=== PATIENT | female | born 1990 | race Caucasian/White ===

== ENCOUNTER → 2018-02-10 | Outpatient (CLI) | payer OTHER ==
--- NOTE | 2018-02-10 15:10 | MR ---
EXAMINATION TYPE: MR lumbar spine wo con DATE OF EXAM: 02/10/2018 COMPARISON: None HISTORY: Low back pain CONTRAST: 0 mL intravenous Gadavist. TECHNIQUE: Multiplanar, multisequence images of the lumbar spine were acquired. FINDINGS: L5-S1: Broad-based disc bulge is present. On T2-weighted sequences there is posterior inferior increa sed signal within the disc space compatible with a large annular tear. No contact with the thecal sac is evident. No contact with the exiting nerve roots is evident. No spinal canal stenosis. No kevin inal stenosis. Disc desiccation is present at this level. L4-L5: Minimal subligamentous central disc herniation may be present. No significant thecal sac compr ession is evident. No spinal canal stenosis. No foraminal stenosis. L3-L4: No significant disc bulge or disc herniation. No spinal canal stenosis. No foraminal stenosi s. L2-L3: No significant disc bulge or disc herniation. No spinal canal stenosis. No foraminal stenosi s. L1-L2: No significant disc bulge or disc herniation. No spinal canal stenosis. No foraminal stenosi s. . T12-L1: No significant disc bulge or disc herniation. No spinal canal stenosis. No foraminal stenos is. IMPRESSION: 1. Large disc bulge with annular tear L5-S1. 2. L5-S1 disc desiccation. 3. Small central subligamentous disc herniation L4-5 questionable clinical significance. No thecal sa c compression or stenosis is evident.
== END ==
LOC: RADMRIMAIN 08:12
PROVIDERS: ATTEND Family Medicine
DX: M51.27 Other intervertebral disc displacement, lumbosacral region (principal)
CPT/HCPCS: 72148

== ENCOUNTER 2023-01-27 14:50 | Emergency (ER) | payer OTHER ==
[2023-01-27] MEDS ORDERED: ALBUTEROL NEBULIZED 2.5 MG/3 ML INHALATION STA (15:07)
[2023-01-27] MEDS ORDERED: BENZONATATE 100 MG CAP PO STA (15:07)
[2023-01-27 15:26] LABS: Basophils % (A) 0 %; Eosinophils # (A) 0.9 k/uL (0-0.7); Eosinophils % (A) 6 %; HCT 41.6 % (34.0-46.0); HGB 14.8 gm/dL (11.4-16.0); Lymphocytes # (A) 2.2 k/uL (1.0-4.8); Lymphocytes % (A) 15 %; MCH 33.6 pg (25.0-35.0); MCHC 35.7 g/dL (31.0-37.0); Mean Platelet Volume 8.5; Monocytes # (A) 0.5 k/uL (0-1.0); Monocytes % (A) 3 %; Neutrophils # (A) 11.3 k/uL (1.3-7.7); Neutrophils % (A) 75 %; Platelet Count 311 k/uL (150-450); RBC 4.42 m/uL (3.80-5.40); RDW 12.4 % (11.5-15.5); WBC 15.2 k/uL (3.8-10.6)
[2023-01-27 15:48] LABS: ALT 9 U/L (4-34); AST 17 U/L (14-36); African American GFR (CKD) >90 (>60 ml/min/1.73 sqM); Albumin 4.4 g/dL (3.5-5.0); Alkaline Phosphatase 55 U/L (38-126); Anion Gap 12 mmol/L; Blood Urea Nitrogen 4 mg/dL (7-17); Calcium 9.4 mg/dL (8.4-10.2); Carbon Dioxide 23 mmol/L (22-30); Chloride 105 mmol/L (98-107); Glucose 104 mg/dL (74-99); Non-African American GFR(CKD) >90 (>60 ml/min/1.73 sqM); Potassium 3.7 mmol/L (3.5-5.1); Sodium 140 mmol/L (137-145); Total Bilirubin 0.5 mg/dL (0.2-1.3); Total Protein 7.8 g/dL (6.3-8.2)
--- NOTE | 2023-01-27 15:50 | XR ---
EXAMINATION TYPE: XR chest 2V DATE OF EXAM: 01/27/2023 COMPARISON: NONE HISTORY: Cough TECHNIQUE: Frontal and lateral views of the chest are obtained. FINDINGS: There is no focal air space opacity, pleural effusion, or pneumothorax seen. The cardiac silhouette size is within normal limits. The osseous structures are intact. IMPRESSION: No acute cardiopulmonary process.
[2023-01-27] MEDS ORDERED: guaiFENesin SYRUP 100MG/5ML 200 MG/10 ML CUP PO PRN (15:54)
--- NOTE | 2023-01-27 16:37 | ED ---
General Adult HPI - General Chief complaint: Shortness of Breath Stated complaint: Chest pain Time Seen by Provider: 01/27/23 14:59 Source: patient, EMS, RN notes reviewed Mode of arrival: EMS Limitations: no limitations - History of Present Illness Initial comments: 32-year-old female with no significant past medical history presents to the emergency department with a chief complaint of cough. Patient reports worsening cough, headache, nasal congestion for the last 3 days. She denies recent sick contacts. She reports that it feels tight when she has to take a deep breath. Denies known fevers, chest pain, palpitations nausea or vomiting. - Related Data Previous Rx's Medication Instructions Recorded Azithromycin [Zithromax Z Pack] 1 tab PO DIRECTED #6 tab 01/27/23 Benzonatate [Tessalon Perles] 100 mg PO TID PRN #15 capsule 01/27/23 Allergies Allergy/AdvReac Type Severity Reaction Status Date / Time No Known Allergies Allergy Verified 01/27/23 16:40 Review of Systems ROS Statement: Those systems with pertinent positive or pertinent negative responses have been documented in the HPI. ROS Other: All systems not noted in ROS Statement are negative. Past Medical History Past Medical History: No Reported History Additional Past Medical History / Comment(s): frequent diarrhea, History of Any Multi-Drug Resistant Organisms: None Reported Additional Past Surgical History / Comment(s): D&C Past Anesthesia/Blood Transfusion Reactions: Motion Sickness Past Psychological History: Anxiety, Bipolar, Depression Smoking Status: Current some day smoker, Vaper Past Alcohol Use History: Occasional Past Drug Use History: None Reported - Past Family History Mother Family Medical History: No Reported History General Exam - General Exam Comments Initial Comments: General: Alert, in no acute distress Head: atraumatic normocephalic. Eyes PERRL, EOMI intact, mucous membranes moist Respiratory: Lungs clear to auscultation bilaterally, patient able to speak in complete sentences. Respiratory rate 16 when directed Cardiovascular: Heart rate regular rate and rhythm Abdominal: Soft without guarding or rebound Extremities: Normal inspection with full range of motion and normal capillary refill Neuroogic: alert and oriented 3, CN II-XII intact, able to ambulate with steady gait Skin: warm dry and intact with normal color Limitations: no limitations Course Vital Signs 01/27/23 01/27/23 01/27/23 14:52 15:12 15:25 Temperature 98.3 F Pulse Rate 116 H 96 92 Respiratory 30 H Rate Blood Pressure 131/91 O2 Sat by Pulse 98 Oximetry - Reevaluation(s) Reevaluation #1: 01/27/23 16:51 Dr. Hernandez At bedside to discuss case EKG Findings - EKG Comments: EKG Findings:: Interpreted the following: EKG performed at 14:51 rate 120 bpm with sinus tachycardia and frequent PVCs. IA interval 143, QRS duration 69, QT/QTc 339/410 Medical Decision Making - Medical Decision Making Was pt. sent in by a medical professional or institution (, [facility], [facility], urgent care, hospital, or jail...) When possible be specific @ -[No] Did you speak to anyone other than the patient for history (EMS, parent, family, police, friend...)? What history was obtained from this source @ -EMS Did you review nursing and triage notes (agree or disagree)? Why? @ -[I reviewed and agree with nursing and triage notes] Were old charts reviewed (outside hosp., previous admission, EMS record, old EKG, old radiological studies, urgent care reports/EKG's, jail records)? Report findings @ -[No old charts were reviewed] Differential Diagnosis (chest pain, altered mental status, abdominal pain women, abdominal pain men, vaginal bleeding, weakness, fever, dyspnea, syncope, headache, dizziness, GI bleed, back pain, seizure, CVA, palpatations, mental health, musculoskeletal)? @ -[not applicable] EKG interpreted by me (3pts min.). @ -[As above] X-rays interpreted by me (1pt min.). @ -Chest x-ray does not reveal any acute pleural process CT interpreted by me (1pt min.). @ -[None done] U/S interpreted by me (1pt. min.). @ -[None done] What testing was considered but not performed or refused? (CT, X-rays, U/S, labs)? Why? @ -[None] What meds were considered but not given or refused? Why? @ -[None] Did you discuss the management of the patient with other professionals (professionals i.e. , [facility], [facility], lab, RT, psych nurse, rn social services, machine captain, teacher, parole hearing officer, family service caseworker)? Give summary @ -[No] Was smoking cessation discussed for >3mins.? @ -[No] Was critical care preformed (if so, how long)? @ -[No] Were there social determinants of health that impacted care today? How? (Homelessness, low income, unemployed, alcoholism, drug addiction, transportation, low edu. Level, literacy, decrease access to med. care, retirement, rehab)? @ -[No] Was there de-escalation of care discussed even if they declined (Discuss DNR or withdrawal of care, Hospice)? DNR status @ -[No] What co-morbidities impacted this encounter? (DM, HTN, Smoking, COPD, CAD, Cancer, CVA, ARF, Chemo, Hep., AIDS, mental health diagnosis, sleep apnea, morbid obesity)? @ -[None] Was patient admitted / discharged? Hospital course, mention meds given and route, prescriptions, significant lab abnormalities, going to OR and other pertinent info. @ -Discharged. This is a 32-year-old female who presents the emergency department via EMS with a cough. Patient had a thorough history and physical exam performed. Patient is safe rate tachycardic however respiratory rate will ranging from 16-18 when directed. Patient had laboratory studies and chest x-ray which were unremarkable. Vital signs negative. Patient provided 2 DuoNeb treatment symptomatic improvement. Patient also provided Tessalon Perles, Robitussin and azithromycin. Dr. Hernandez At bedside to evaluate the patient. We discussed at length with the patient verbalizes for questions were addressed. She is agreeable with the plan for discharge home with strict return parameters. Patient was discharged in stable condition. This is discussed with Dr. Prajapati Litzy who agrees with plan of care Undiagnosed new problem with uncertain prognosis? @ -[No] Drug Therapy requiring intensive monitoring for toxicity (Heparin, Nitro, Insulin, Cardizem)? @ -[No] Were any procedures done? @ -[No] Diagnosis/symptom? @ -COugh Acute, or Chronic, or Acute on Chronic? @ -[Acute Uncomplicated (without systemic symptoms) or Complicated (systemic symptoms)? @ -Uncomplicated Side effects of treatment? @ -[No] Exacerbation, Progression, or Severe Exacerbation? @ -[No] Poses a threat to life or bodily function? How? (Chest pain, [place], [place], pneumonia, PE, COPD, DKA, ARF, appy, cholecystitis, CVA, Diverticulitis, Homicidal, Suicidal, threat to staff... and all critical care pts) @ -Low likelihood - Lab Data Result diagrams: 01/27/23 15:10 01/27/23 15:10 Lab Results 01/27/23 01/27/23 01/27/23 Range/Units 15:10 15:10 15:10 WBC 15.2 H (3.8-10.6) k/uL RBC 4.42 (3.80-5.40) m/uL Hgb 14.8 (11.4-16.0) gm/dL Hct 41.6 (34.0-46.0) % MCV 94.0 (80.0-100.0) fL MCH 33.6 (25.0-35.0) pg MCHC 35.7 (31.0-37.0) g/dL RDW 12.4 (11.5-15.5) % Plt Count 311 (150-450) k/uL MPV 8.5 Neutrophils % 75 % Lymphocytes % 15 % Monocytes % 3 % Eosinophils % 6 % Basophils % 0 % Neutrophils # 11.3 H (1.3-7.7) k/uL Lymphocytes # 2.2 (1.0-4.8) k/uL Monocytes # 0.5 (0-1.0) k/uL Eosinophils # 0.9 H (0-0.7) k/uL Basophils # 0.0 (0-0.2) k/uL D-Dimer 0.41 (<0.60) mg/L FEU Sodium 140 (137-145) mmol/L Potassium 3.7 (3.5-5.1) mmol/L Chloride 105 (98-107) mmol/L Carbon Dioxide 23 (22-30) mmol/L Anion Gap 12 mmol/L BUN 4 L (7-17) mg/dL Creatinine 0.56 (0.52-1.04) mg/dL Est GFR (CKD-EPI)AfAm >90 (>60 ml/min/1.73 sqM) Est GFR (CKD-EPI)NonAf >90 (>60 ml/min/1.73 sqM) Glucose 104 H (74-99) mg/dL Calcium 9.4 (8.4-10.2) mg/dL Total Bilirubin 0.5 (0.2-1.3) mg/dL AST 17 (14-36) U/L ALT 9 (4-34) U/L Alkaline Phosphatase 55 (38-126) U/L Total Protein 7.8 (6.3-8.2) g/dL Albumin 4.4 (3.5-5.0) g/dL Influenza Type A (PCR) (Not Detectd) Influenza Type B (PCR) (Not Detectd) RSV (PCR) (Not Detectd) SARS-CoV-2 (PCR) (Not Detectd) Group A Strep (PCR) (Not Detectd) 01/27/23 01/27/23 Range/Units 15:10 15:10 WBC (3.8-10.6) k/uL RBC (3.80-5.40) m/uL Hgb (11.4-16.0) gm/dL Hct (34.0-46.0) % MCV (80.0-100.0) fL MCH (25.0-35.0) pg MCHC (31.0-37.0) g/dL RDW (11.5-15.5) % Plt Count (150-450) k/uL MPV Neutrophils % % Lymphocytes % % Monocytes % % Eosinophils % % Basophils % % Neutrophils # (1.3-7.7) k/uL Lymphocytes # (1.0-4.8) k/uL Monocytes # (0-1.0) k/uL Eosinophils # (0-0.7) k/uL Basophils # (0-0.2) k/uL D-Dimer (<0.60) mg/L FEU Sodium (137-145) mmol/L Potassium (3.5-5.1) mmol/L Chloride (98-107) mmol/L Carbon Dioxide (22-30) mmol/L Anion Gap mmol/L BUN (7-17) mg/dL Creatinine (0.52-1.04) mg/dL Est GFR (CKD-EPI)AfAm (>60 ml/min/1.73 sqM) Est GFR (CKD-EPI)NonAf (>60 ml/min/1.73 sqM) Glucose (74-99) mg/dL Calcium (8.4-10.2) mg/dL Total Bilirubin (0.2-1.3) mg/dL AST (14-36) U/L ALT (4-34) U/L Alkaline Phosphatase (38-126) U/L Total Protein (6.3-8.2) g/dL Albumin (3.5-5.0) g/dL Influenza Type A (PCR) Not Detected (Not Detectd) Influenza Type B (PCR) Not Detected (Not Detectd) RSV (PCR) Not Detected (Not Detectd) SARS-CoV-2 (PCR) Not Detected (Not Detectd) Group A Strep (PCR) NOT DETECTED (Not Detectd) Disposition Clinical Impression: Cough Disposition: HOME SELF-CARE Condition: Stable Instructions (If sedation given, give patient instructions): Cold Symptoms (ED), Bronchospasm (ED), Acute Cough (ED) Additional Instructions: PLease monitor your symptoms closley Please take Tessalon Perles for cough Return to the nearest emergency department symptoms worsen or persist Prescriptions: Benzonatate [Tessalon Perles] 100 mg PO TID PRN #15 capsule PRN Reason: Cough Azithromycin [Zithromax Z Pack] 1 tab PO DIRECTED #6 tab Is patient prescribed a controlled substance at d/c from ED?: No Referrals: Taran Vasques MD [Primary Care Provider] - 1-2 days Time of Disposition: 16:39
[2023-01-27] MEDS ORDERED: AZITHROMYCIN 500 MG TAB PO STA (16:47)
[2023-01-27] MEDS ORDERED: IPRATROPIUM-ALBUTEROL 3 ML NEB INHALATION STA (16:52)
[2023-01-27 17:55] VITALS: BP 113/79; PULSE 104; RESP 20; TEMP 98.5
== END 2023-01-27 17:46 | disposition home or self-care (01) ==
LOC: EC 14:50
DX: R05.9 Cough, unspecified (principal); F17.290 Nicotine dependence, other tobacco product, uncomplicated; I25.2 Old myocardial infarction; Z86.59 Personal history of other mental and behavioral disorders; Z20.822 Contact with and (suspected) exposure to COVID-19
CPT/HCPCS: 36415; 71046; 80053; 85025; 85379; 87636; 87651; 94640; 99285

== ENCOUNTER 2023-01-27 20:19 | Observation (INO) | payer OTHER ==
[2023-01-27] MEDS ORDERED: ONDANSETRON 4 MG/2 ML VIAL IVP STA (20:41)
[2023-01-27] MEDS ORDERED: SODIUM CHLORIDE 0.9% 1,000 ML IV STA ×2 (20:41)
--- NOTE | 2023-01-27 21:20 | ED ---
Altered Mental Status HPI - General Chief Complaint: Nausea/Vomiting/Diarrhea Stated Complaint: recheck Time Seen by Provider: 01/27/23 20:37 Source: patient, family, RN notes reviewed, old records reviewed Mode of arrival: wheelchair Limitations: no limitations - History of Present Illness Initial Comments: This is a 32-year-old female presents to the emergency department today today. Patient is safe for evaluation regards to significantly altered mental status. Patient was in the emergency room earlier today diagnosed with bronchitis given antibiotics and having severe shortness of breath at the time. Patient's family is at bedside with patient states she's been acting appropriately complaining of severe headache, crying in pain with shortness of breath and chest pain. MD Complaint: altered mental status, confusion -: hour(s) Severity: severe Consistency of Symptoms: getting worse Context: history of similar presentation, other (Chest pain or shortness of breath) Associated Symptoms: chest pain, cough, headaches - Related Data Previous Rx's Medication Instructions Recorded Amoxic-Pot Clav 875-125Mg 1 tab PO Q12HR 7 Days #14 tab 01/30/23 [Augmentin 875-125] Benzocaine/Menthol Lozeng [Cepacol 1 each MUCOUS MEM Q4HR PRN 7 Days 01/30/23 lozenge] #42 lozenge guaiFENesin [Mucinex] 600 mg PO Q12HR 5 Days #10 tab 01/30/23 predniSONE [Deltasone] 20 mg PO DAILY 3 Days #3 tab 01/30/23 Allergies Allergy/AdvReac Type Severity Reaction Status Date / Time No Known Allergies Allergy Verified 01/27/23 21:54 Review of Systems ROS Statement: Those systems with pertinent positive or pertinent negative responses have been documented in the HPI. ROS Other: All systems not noted in ROS Statement are negative. Past Medical History Past Medical History: No Reported History Additional Past Medical History / Comment(s): frequent diarrhea, History of Any Multi-Drug Resistant Organisms: None Reported Additional Past Surgical History / Comment(s): D&C Past Anesthesia/Blood Transfusion Reactions: Motion Sickness Past Psychological History: Anxiety, Bipolar, Depression Smoking Status: Current some day smoker, Vaper Past Alcohol Use History: Occasional Past Drug Use History: None Reported - Past Family History Mother Family Medical History: No Reported History General Exam Limitations: no limitations General appearance: alert, in no apparent distress, anxious Head exam: Present: atraumatic, normocephalic, normal inspection Eye exam: Present: normal appearance, PERRL, EOMI. Absent: scleral icterus, conjunctival injection, periorbital swelling ENT exam: Present: normal exam, mucous membranes moist Neck exam: Present: normal inspection. Absent: tenderness, meningismus, lymphadenopathy Respiratory exam: Present: normal lung sounds bilaterally. Absent: respiratory distress, wheezes, rales, rhonchi, stridor Cardiovascular Exam: Present: normal rhythm, tachycardia, normal heart sounds. Absent: systolic murmur, diastolic murmur, rubs, gallop, clicks GI/Abdominal exam: Present: soft, normal bowel sounds. Absent: distended, tenderness, guarding, rebound, rigid Extremities exam: Present: normal inspection, full ROM, normal capillary refill. Absent: tenderness, pedal edema, joint swelling, calf tenderness Back exam: Present: normal inspection Neurological exam: Present: alert, oriented X3, CN II-XII intact Psychiatric exam: Present: normal affect, normal mood Skin exam: Present: warm, dry, intact, normal color. Absent: rash Course Vital Signs 01/27/23 01/27/23 01/27/23 20:25 20:30 22:05 Temperature 98.0 F 98.7 F Pulse Rate 114 H 95 90 Respiratory 18 16 Rate Blood Pressure 114/78 73/44 O2 Sat by Pulse 95 91 L Oximetry 01/27/23 01/27/23 01/28/23 22:18 23:03 01:42 Temperature 99.2 F Pulse Rate 93 96 90 Respiratory 20 18 Rate Blood Pressure 107/62 98/71 O2 Sat by Pulse 95 96 Oximetry - Reevaluation(s) Reevaluation #1: 01/27/23 21:20 Medical records reviewed Reevaluation #2: Patient symptoms unchanged, remains amply altered Reevaluation #3: Patient informed of results and questions answered Reevaluation #4: 01/27/23 21:20 Was pt. sent in by a medical professional or institution (, PA, BAKER [facility], urgent care, hospital, or skilled nursing...) When possible be specific @ -no Did you speak to anyone other than the patient for history (EMS, parent, family, police, friend...)? What history was obtained from this source @ -no Did you review nursing and triage notes (agree or disagree)? Why? @ -agree Are old charts reviewed (outside hosp., previous admission, EMS record, old EKG, old radiological studies, urgent care reports/EKG's, skilled nursing records)? Report findings @ -yes Differential Diagnosis (chest pain, altered mental status, abdominal pain women, abdominal pain men, vaginal bleeding, weakness, fever, dyspnea, syncope, headache, dizziness, GI bleed, back pain, seizure, CVA, palpatations, mental health, musculoskeletal)? @ -prior EKG interpreted by me (3pts min.). @ -yes X-rays interpreted by me (1pt min.). @ -no CT interpreted by me (1pt min.). @ -yes U/S interpreted by me (1pt. min.). @ -no What testing was considered but not performed or refused? (CT, X-rays, U/S, labs)? Why? @ -none What meds were considered but not given or refused? Why? @ -none Did you discuss the management of the patient with other professionals (professionals i.e. , PA, BAK[facility] PA[facility], lab, RT, psych nurse, social media community manager, automation engineering manager, teacher, home lending officer, showcase maker)? Give summary @ -no Was smoking cessation discussed for >3mins.? @ -no Was critical care preformed (if so, how long)? @ -no Were there social determinants of health that impacted care today? How? (Homelessness, low income, unemployed, alcoholism, drug addiction, transportation, low edu. Level, literacy, decrease access to med. care, long term, rehab)? @ -none Was there de-escalation of care discussed even if they declined (Discuss DNR or withdrawal of care, Hospice)? DNR status @ -no What co-morbidities impacted this encounter? (DM, HTN, Smoking, COPD, CAD, Cancer, CVA, ARF, Chemo, Hep., AIDS, mental health diagnosis, sleep apnea, mor bid obesity)? @ -none Was patient admitted / discharged? Hospital course, mention meds given and [place], prescriptions, significant lab abnormalities, going to OR and other pertinent info. @ - 32 female to the emergency department for altered mental status and recent ER visit earlier today and discharged home. Patient continued to have shortness of breath cough congestion otherwise not feeling well. Patient herself appears to be a poor strain as she was in the ER visit earlier today where was called to see her prior to discharge his family was concerned for will being. Patient be admitted for further supportive care Admitted Undiagnosed new problem with uncertain prognosis? @ -no Drug Therapy requiring intensive monitoring for toxicity (Heparin, Nitro, Insulin, Cardizem)? @ -no Were any procedures done? @ -no Diagnosis/symptom? @ -Altered mental status Acute, or Chronic, or Acute on Chronic? @ -Acute Uncomplicated (without systemic symptoms) or Complicated (systemic symptoms)? @ -Complicated Side effects of treatment? @ -no Exacerbation, Progression, or Severe Exacerbation? @ -exacerbation Poses a threat to life or bodily function? How? (Chest pain, [place], [place], pneumonia, PE, COPD, DKA, ARF, appy, cholecystitis, CVA, Diverticulitis, Homicidal, Suicidal, threat to staff... and all critical care pts) @ -yes Reevaluation #5: 01/27/23 21:20 Differential Headache: Migraine, tension, cluster, carbon monoxide, central venous thrombosis, pension karma temporal arteritis, acute closure glaucoma, intercranial hemorrhage, mastoiditis, sinusitis, head injury, this is not meant to be an all-inclusive list. Differential Dyspnea: Coronary syndrome, arrhythmia, tamponade, asthma, COPD, pulmonary embolism, pneumonia, pneumothorax, pulmonary effusion, anaphylaxis, diabetic ketoacidosis, flailed chest, pulmonary contusion, diaphragmatic rupture, anemia, neuromuscular, this is not meant to be an all-inclusive list. - Consultations Consultation #1: Spoke with physicians agreeable admit this patient Medical Decision Making - Medical Decision Making 32 female to the emergency department for altered mental status and recent ER visit earlier today and discharged home. Patient continued to have shortness of breath cough congestion otherwise not feeling well. Patient herself appears to be a poor strain as she was in the ER visit earlier today where was called to see her family was concerned for will being. Patient be admitted for further supportive care - Lab Data Result diagrams: 01/30/23 04:42 01/30/23 04:42 Lab Results 01/27/23 01/27/23 01/27/23 Range/Units 21:15 21:15 21:15 WBC 17.8 H (3.8-10.6) k/uL RBC 4.39 (3.80-5.40) m/uL Hgb 14.6 (11.4-16.0) gm/dL Hct 41.1 (34.0-46.0) % MCV 93.6 (80.0-100.0) fL MCH 33.3 (25.0-35.0) pg MCHC 35.5 (31.0-37.0) g/dL RDW 12.4 (11.5-15.5) % Plt Count 291 (150-450) k/uL MPV 8.8 Neutrophils % 85 % Lymphocytes % 6 % Monocytes % 4 % Eosinophils % 5 % Basophils % 0 % Neutrophils # 15.1 H (1.3-7.7) k/uL Lymphocytes # 1.1 (1.0-4.8) k/uL Monocytes # 0.7 (0-1.0) k/uL Eosinophils # 0.8 H (0-0.7) k/uL Basophils # 0.1 (0-0.2) k/uL PT 11.2 (10.0-12.5) sec INR 1.0 (<1.2) APTT 26.9 (22.0-30.0) sec D-Dimer 0.69 H (<0.60) mg/L FEU VBG pH (7.31-7.41) VBG pCO2 (37-51) mmHg VBG HCO3 (24-28) mmol/L Sodium 138 (137-145) mmol/L Potassium 3.8 (3.5-5.1) mmol/L Chloride 105 (98-107) mmol/L Carbon Dioxide 21 L (22-30) mmol/L Anion Gap 12 mmol/L BUN 4 L (7-17) mg/dL Creatinine 0.47 L (0.52-1.04) mg/dL Est GFR (CKD-EPI)AfAm >90 (>60 ml/min/1.73 sqM) Est GFR (CKD-EPI)NonAf >90 (>60 ml/min/1.73 sqM) Glucose 104 H (74-99) mg/dL POC Glucose (mg/dL) (70-110) mg/dL POC Glu Financial Analyst ID Lactic Ac Sepsis Rflx Plasma Lactic Acid Kee (0.7-2.0) mmol/L Calcium 9.4 (8.4-10.2) mg/dL Phosphorus 4.1 (2.5-4.5) mg/dL Magnesium 1.5 L (1.6-2.3) mg/dL Total Bilirubin 0.7 (0.2-1.3) mg/dL AST 19 (14-36) U/L ALT 11 (4-34) U/L Alkaline Phosphatase 62 (38-126) U/L Ammonia (<30) umol/L Troponin I (0.000-0.034) ng/mL NT-Pro-B Natriuret Pep 109 pg/mL Total Protein 8.1 (6.3-8.2) g/dL Albumin 4.5 (3.5-5.0) g/dL TSH 0.572 (0.465-4.680) mIU/L Urine Color Urine Appearance (Clear) Urine pH (5.0-8.0) Ur Specific [place] (1.001-1.035) Urine Protein (Negative) Urine Glucose (UA) (Negative) Urine Ketones (Negative) Urine Blood (Negative) Urine Nitrite (Negative) Urine Bilirubin (Negative) Urine Urobilinogen (<2.0) mg/dL Ur Leukocyte Esterase (Negative) Urine Opiates Screen (NotDetected) Ur Oxycodone Screen (NotDetected) Urine Methadone Screen (NotDetected) Ur Propoxyphene Screen (NotDetected) Ur Barbiturates Screen (NotDetected) U Tricyclic Antidepress (NotDetected) Ur Phencyclidine Scrn (NotDetected) Ur Amphetamines Screen (NotDetected) U Methamphetamines Scrn (NotDetected) U Benzodiazepines Scrn (NotDetected) Urine Cocaine Screen (NotDetected) U Marijuana (THC) Screen (NotDetected) Serum Alcohol <10 mg/dL 01/27/23 01/27/23 01/27/23 Range/Units 21:15 21:15 21:15 WBC (3.8-10.6) k/uL RBC (3.80-5.40) m/uL Hgb (11.4-16.0) gm/dL Hct (34.0-46.0) % MCV (80.0-100.0) fL MCH (25.0-35.0) pg MCHC (31.0-37.0) g/dL RDW (11.5-15.5) % Plt Count (150-450) k/uL MPV Neutrophils % % Lymphocytes % % Monocytes % % Eosinophils % % Basophils % % Neutrophils # (1.3-7.7) k/uL Lymphocytes # (1.0-4.8) k/uL Monocytes # (0-1.0) k/uL Eosinophils # (0-0.7) k/uL Basophils # (0-0.2) k/uL PT (10.0-12.5) sec INR (<1.2) APTT (22.0-30.0) sec D-Dimer (<0.60) mg/L FEU VBG pH 7.40 (7.31-7.41) VBG pCO2 40 (37-51) mmHg VBG HCO3 25 (24-28) mmol/L Sodium (137-145) mmol/L Potassium (3.5-5.1) mmol/L Chloride (98-107) mmol/L Carbon Dioxide (22-30) mmol/L Anion Gap mmol/L BUN (7-17) mg/dL Creatinine (0.52-1.04) mg/dL Est GFR (CKD-EPI)AfAm (>60 ml/min/1.73 sqM) Est GFR (CKD-EPI)NonAf (>60 ml/min/1.73 sqM) Glucose (74-99) mg/dL POC Glucose (mg/dL) (70-110) mg/dL POC Glu Financial Analyst ID Lactic Ac Sepsis Rflx Plasma Lactic Acid Kee 1.7 (0.7-2.0) mmol/L Calcium (8.4-10.2) mg/dL Phosphorus (2.5-4.5) mg/dL Magnesium (1.6-2.3) mg/dL Total Bilirubin (0.2-1.3) mg/dL AST (14-36) U/L ALT (4-34) U/L Alkaline Phosphatase (38-126) U/L Ammonia 18 (<30) umol/L Troponin I <0.012 (0.000-0.034) ng/mL NT-Pro-B Natriuret Pep pg/mL Total Protein (6.3-8.2) g/dL Albumin (3.5-5.0) g/dL TSH (0.465-4.680) mIU/L Urine Color Urine Appearance (Clear) Urine pH (5.0-8.0) Ur Specific [place] (1.001-1.035) Urine Protein (Negative) Urine Glucose (UA) (Negative) Urine Ketones (Negative) Urine Blood (Negative) Urine Nitrite (Negative) Urine Bilirubin (Negative) Urine Urobilinogen (<2.0) mg/dL Ur Leukocyte Esterase (Negative) Urine Opiates Screen (NotDetected) Ur Oxycodone Screen (NotDetected) Urine Methadone Screen (NotDetected) Ur Propoxyphene Screen (NotDetected) Ur Barbiturates Screen (NotDetected) U Tricyclic Antidepress (NotDetected) Ur Phencyclidine Scrn (NotDetected) Ur Amphetamines Screen (NotDetected) U Methamphetamines Scrn (NotDetected) U Benzodiazepines Scrn (NotDetected) Urine Cocaine Screen (NotDetected) U Marijuana (THC) Screen (NotDetected) Serum Alcohol mg/dL 01/27/23 01/28/23 01/28/23 Range/Units 22:50 07:30 09:52 WBC (3.8-10.6) k/uL RBC (3.80-5.40) m/uL Hgb (11.4-16.0) gm/dL Hct (34.0-46.0) % MCV (80.0-100.0) fL MCH (25.0-35.0) pg MCHC (31.0-37.0) g/dL RDW (11.5-15.5) % Plt Count (150-450) k/uL MPV Neutrophils % % Lymphocytes % % Monocytes % % Eosinophils % % Basophils % % Neutrophils # (1.3-7.7) k/uL Lymphocytes # (1.0-4.8) k/uL Monocytes # (0-1.0) k/uL Eosinophils # (0-0.7) k/uL Basophils # (0-0.2) k/uL PT (10.0-12.5) sec INR (<1.2) APTT (22.0-30.0) sec D-Dimer (<0.60) mg/L FEU VBG pH (7.31-7.41) VBG pCO2 (37-51) mmHg VBG HCO3 (24-28) mmol/L Sodium (137-145) mmol/L Potassium (3.5-5.1) mmol/L Chloride (98-107) mmol/L Carbon Dioxide (22-30) mmol/L Anion Gap mmol/L BUN (7-17) mg/dL Creatinine (0.52-1.04) mg/dL Est GFR (CKD-EPI)AfAm (>60 ml/min/1.73 sqM) Est GFR (CKD-EPI)NonAf (>60 ml/min/1.73 sqM) Glucose (74-99) mg/dL POC Glucose (mg/dL) 146 H (70-110) mg/dL POC Glu Financial Analyst ID Aviva Fry Lactic Ac Sepsis Rflx Plasma Lactic Acid Kee 3.5 H* (0.7-2.0) mmol/L Calcium (8.4-10.2) mg/dL Phosphorus (2.5-4.5) mg/dL Magnesium (1.6-2.3) mg/dL Total Bilirubin (0.2-1.3) mg/dL AST (14-36) U/L ALT (4-34) U/L Alkaline Phosphatase (38-126) U/L Ammonia (<30) umol/L Troponin I (0.000-0.034) ng/mL NT-Pro-B Natriuret Pep pg/mL Total Protein (6.3-8.2) g/dL Albumin (3.5-5.0) g/dL TSH (0.465-4.680) mIU/L Urine Color Colorless Urine Appearance Clear (Clear) Urine pH 5.5 (5.0-8.0) Ur Specific [place] 1.011 (1.001-1.035) Urine Protein Negative (Negative) Urine Glucose (UA) Negative (Negative) Urine Ketones Negative (Negative) Urine Blood Negative (Negative) Urine Nitrite Negative (Negative) Urine Bilirubin Negative (Negative) Urine Urobilinogen <2.0 (<2.0) mg/dL Ur Leukocyte Esterase Negative (Negative) Urine Opiates Screen Not Detected (NotDetected) Ur Oxycodone Screen Not Detected (NotDetected) Urine Methadone Screen Not Detected (NotDetected) Ur Propoxyphene Screen Not Detected (NotDetected) Ur Barbiturates Screen Not Detected (NotDetected) U Tricyclic Antidepress Not Detected (NotDetected) Ur Phencyclidine Scrn Not Detected (NotDetected) Ur Amphetamines Screen Not Detected (NotDetected) U Methamphetamines Scrn Not Detected (NotDetected) U Benzodiazepines Scrn Not Detected (NotDetected) Urine Cocaine Screen Not Detected (NotDetected) U Marijuana (THC) Screen Not Detected (NotDetected) Serum Alcohol mg/dL 01/28/23 01/28/23 01/28/23 Range/Units 10:31 11:51 12:42 WBC (3.8-10.6) k/uL RBC (3.80-5.40) m/uL Hgb (11.4-16.0) gm/dL Hct (34.0-46.0) % MCV (80.0-100.0) fL MCH (25.0-35.0) pg MCHC (31.0-37.0) g/dL RDW (11.5-15.5) % Plt Count (150-450) k/uL MPV Neutrophils % % Lymphocytes % % Monocytes % % Eosinophils % % Basophils % % Neutrophils # (1.3-7.7) k/uL Lymphocytes # (1.0-4.8) k/uL Monocytes # (0-1.0) k/uL Eosinophils # (0-0.7) k/uL Basophils # (0-0.2) k/uL PT (10.0-12.5) sec INR (<1.2) APTT (22.0-30.0) sec D-Dimer (<0.60) mg/L FEU VBG pH (7.31-7.41) VBG pCO2 (37-51) mmHg VBG HCO3 (24-28) mmol/L Sodium (137-145) mmol/L Potassium (3.5-5.1) mmol/L Chloride (98-107) mmol/L Carbon Dioxide (22-30) mmol/L Anion Gap mmol/L BUN (7-17) mg/dL Creatinine (0.52-1.04) mg/dL Est GFR (CKD-EPI)AfAm (>60 ml/min/1.73 sqM) Est GFR (CKD-EPI)NonAf (>60 ml/min/1.73 sqM) Glucose (74-99) mg/dL POC Glucose (mg/dL) 245 H (70-110) mg/dL POC Glu Financial Analyst ID Aviva Fry Lactic Ac Sepsis Rflx Y Plasma Lactic Acid [place]ee 2.4 H* (0.7-2.0) mmol/L Calcium (8.4-10.2) mg/dL Phosphorus (2.5-4.5) mg/dL Magnesium (1.6-2.3) mg/dL Total Bilirubin (0.2-1.3) mg/dL AST (14-36) U/L ALT (4-34) U/L Alkaline Phosphatase (38-126) U/L Ammonia (<30) umol/L Troponin I (0.000-0.034) ng/mL NT-Pro-B Natriuret Pep pg/mL Total Protein (6.3-8.2) g/dL Albumin (3.5-5.0) g/dL TSH (0.465-4.680) mIU/L Urine Color Urine Appearance (Clear) Urine pH (5.0-8.0) Ur Specific [place] (1.001-1.035) Urine Protein (Negative) Urine Glucose (UA) (Negative) Urine Ketones (Negative) Urine Blood (Negative) Urine Nitrite (Negative) Urine Bilirubin (Negative) Urine Urobilinogen (<2.0) mg/dL Ur Leukocyte Esterase (Negative) Urine Opiates Screen (NotDetected) Ur Oxycodone Screen (NotDetected) Urine Methadone Screen (NotDetected) Ur Propoxyphene Screen (NotDetected) Ur Barbiturates Screen (NotDetected) U Tricyclic Antidepress (NotDetected) Ur Phencyclidine Scrn (NotDetected) Ur Amphetamines Screen (NotDetected) U Methamphetamines Scrn (NotDetected) U Benzodiazepines Scrn (NotDetected) Urine Cocaine Screen (NotDetected) U Marijuana (THC) Screen (NotDetected) Serum Alcohol mg/dL - EKG Data -: EKG Interpreted by Me (EKG is sinus 85 [address] 146 QRS 77 [id number]) - Radiology Data Radiology results: report reviewed (CT angios chest, CT brain negative for acute disease), image reviewed Disposition Clinical Impression: Dehydration, Gastroenteritis, Altered mental state, Bronchitis, Tachycardia Disposition: ADMITTED IP TO THIS HOSP Condition: Stable Is patient prescribed a controlled substance at d/c from ED?: No Time of Disposition: 00:45
[2023-01-27] MEDS ORDERED: IPRATROPIUM-ALBUTEROL 3 ML NEB INHALATION STA (21:27)
[2023-01-27 22:08] LABS: Basophils # (A) 0.1 k/uL (0-0.2); Basophils % (A) 0 %; Eosinophils # (A) 0.8 k/uL (0-0.7); Eosinophils % (A) 5 %; HCT 41.1 % (34.0-46.0); HGB 14.6 gm/dL (11.4-16.0); Lymphocytes # (A) 1.1 k/uL (1.0-4.8); Lymphocytes % (A) 6 %; MCH 33.3 pg (25.0-35.0); MCHC 35.5 g/dL (31.0-37.0); MCV 93.6 fL (80.0-100.0); Mean Platelet Volume 8.8; Monocytes # (A) 0.7 k/uL (0-1.0); Monocytes % (A) 4 %; Neutrophils # (A) 15.1 k/uL (1.3-7.7); Neutrophils % (A) 85 %; Platelet Count 291 k/uL (150-450); RBC 4.39 m/uL (3.80-5.40); RDW 12.4 % (11.5-15.5); WBC 17.8 k/uL (3.8-10.6)
[2023-01-27 22:11] LABS: Lactic Acid, Venous 1.7 mmol/L (0.7-2.0)
[2023-01-27 22:12] LABS: ALT 11 U/L (4-34); AST 19 U/L (14-36); African American GFR (CKD) >90 (>60 ml/min/1.73 sqM); Albumin 4.5 g/dL (3.5-5.0); Alcohol <10 mg/dL; Alkaline Phosphatase 62 U/L (38-126); Anion Gap 12 mmol/L; Blood Urea Nitrogen 4 mg/dL (7-17); Calcium 9.4 mg/dL (8.4-10.2); Carbon Dioxide 21 mmol/L (22-30); Chloride 105 mmol/L (98-107); Glucose 104 mg/dL (74-99); Magnesium 1.5 mg/dL (1.6-2.3); Non-African American GFR(CKD) >90 (>60 ml/min/1.73 sqM); Phosphorus 4.1 mg/dL (2.5-4.5); Potassium 3.8 mmol/L (3.5-5.1); Sodium 138 mmol/L (137-145); Total Bilirubin 0.7 mg/dL (0.2-1.3); Total Protein 8.1 g/dL (6.3-8.2)
[2023-01-27 22:18] LABS: VBG PH 7.4 (7.31-7.41)
[2023-01-27 22:21] LABS: NT-Pro-B-Type Natriuretic Pept 109 pg/mL; Partial Thromboplastin Time 26.9 sec (22.0-30.0); Prothrombin Time 11.2 sec (10.0-12.5)
[2023-01-27 23:03] LABS: Appearance,Urine Clear (Clear); Bilirubin,Urine Negative (Negative); Blood,Urine Negative (Negative); Color,Urine Colorless; Glucose,Urine (UA) Negative (Negative); Ketones,Urine Negative (Negative); Leukocyte Esterase,Urine Negative (Negative); Nitrite,Urine Negative (Negative); PH, Urine 5.5 (5.0-8.0); Protein,Urine Negative (Negative); Specific Gravity,Urine 1.011 (1.001-1.035); Urobilinogen,Urine <2.0 mg/dL (<2.0)
[2023-01-27 23:15] LABS: Amphetamine Screen,Urine Not Detected (NotDetected); Barbiturate Screen,Urine Not Detected (NotDetected); Benzodiazepines Screen,Urine Not Detected (NotDetected); Cocaine Screen,Urine Not Detected (NotDetected); Methadone Screen, Urine Not Detected (NotDetected); Opiate Screen,Urine Not Detected (NotDetected); Oxycodone Screen, Urine Not Detected (NotDetected); Phencyclidine Screen,Urine Not Detected (NotDetected); Tricyclic Antidepressant,Urine Not Detected (NotDetected); Urn Cannabinoid Scrn Not Detected (NotDetected)
[2023-01-27] MEDS: MAGNESIUM SULFATE-D5W PMX 1 GM in DEXTROSE/WATER 1 100ML.BAG IVPB SCH (23:45)
[2023-01-28] MEDS: MAGNESIUM SULFATE-D5W PMX 1 GM in DEXTROSE/WATER 1 100ML.BAG IVPB SCH ×3 (00:45→12:15)
[2023-01-28] MEDS ORDERED: ACETAMINOPHEN TAB 325 MG TAB PO PRN (00:46)
[2023-01-28] MEDS ORDERED: methylPREDNISolone SOD SUCCI 125 MG/2 ML VIAL IV STA (00:46)
[2023-01-28] MEDS ORDERED: NALOXONE 0.4 MG/ML 1 ML VIAL IVP PRN (00:46)
--- NOTE | 2023-01-28 00:55 | CT ---
EXAMINATION TYPE: CT brain wo con CT DLP: 1079.4 mGycm, Automated exposure control for dose reduction was used. DATE OF EXAM: 01/27/2023 9:44 PM COMPARISON: . CLINICAL INDICATION:Female, 32 years old with history of hugo, Headache, AMS. TECHNIQUE: Brain: Axial CT images of the brain were obtained with coronal and sagittal reformats created and rev iewed. Contrast used: None. Oral contrast used: None. FINDINGS: Brain: Extra-axial spaces: No abnormal extra-axial fluid collections. Ventricular system: Within normal limits Cerebral parenchyma: No acute intraparenchymal hemorrhage or mass effect. The cleaning-white matter int erface appears maintained. No significant atrophy. . Cerebellum: No acute abnormality. Mass effect: No evidence of midline shift. Intracranial vasculature: Unremarkable Soft tissues: Haziness of the subcutaneous fat in the superior scalp, of uncertain etiology or signif icance. Calvarium/osseous structures: No calvarial fracture. Paranasal sinuses and mastoid air cells: Air-fluid level in the right maxillary sinus. Partial opacif ication of several bilateral ethmoid air cells. Mild mucosal thickening in the left maxillary sinus. Near-complete opacification of the visualized portion of the right nasal passage. Visualized orbits: Orbital contents appear grossly intact. MRI is more sensitive for detecting acute processes such as infarct, and may be considered if clinica lly warranted. IMPRESSION: 1. No acute intracranial CT abnormality. 2. Opacified right nasal passage with paranasal sinus disease including air-fluid level in the right maxillary sinus. Correlate for acute sinusitis.
--- NOTE | 2023-01-28 01:28 | CT ---
EXAM: CT Angiography Chest With Intravenous Contrast CLINICAL HISTORY: ITS.REASON CT Reason: pe TECHNIQUE: Axial computed tomographic angiography images of the chest with intravenous contrast. CTDI is 11.47 mGy and DLP is 185.4 mGy-cm. This CT exam was performed using one or more of the following dose reduction techniques: automated exposure control, adjustment of the mA and/or kV according to patient size, and/or use of iterative reconstruction technique. MIP reconstructed images were created and reviewed. COMPARISON: No relevant prior studies available. FINDINGS: Pulmonary arteries: Unremarkable. No pulmonary embolism. Aorta: No acute findings. No thoracic aortic aneurysm. Lungs: Unremarkable. No mass. No consolidation. Pleural space: Unremarkable. No significant effusion. No pneumothorax. Heart: Unremarkable. No cardiomegaly. No significant pericardial effusion. No evidence of RV dysfunction. Bones/joints: No acute fracture. No dislocation. Soft tissues: Unremarkable. Lymph nodes: Unremarkable. No enlarged lymph nodes. IMPRESSION: Normal chest CTA. No pulmonary embolism.
[2023-01-28] MEDS ORDERED: methylPREDNISolone SOD SUCCI 125 MG/2 ML VIAL IV SCH (06:00)
[2023-01-28 07:31] LABS: Glucose,Whole Blood 146 mg/dL (70-110)
[2023-01-28] MEDS: methylPREDNISolone SOD SUCCI 125 MG/2 ML VIAL IV SCH ×3 (08:14→20:11)
[2023-01-28] MEDS ORDERED: BENZONATATE 100 MG CAP PO PRN (09:28)
[2023-01-28] MEDS ORDERED: BENZOCAINE/MENTHOL LOZENG 1 EACH LOZENGE MUCOUS MEM PRN (09:30)
[2023-01-28] MEDS ORDERED: traMADol 50 MG TAB PO PRN (09:30)
[2023-01-28] MEDS ORDERED: CALCIUM CARBONATE 500 MG CHEWABLE PO PRN (09:30)
[2023-01-28] MEDS: IPRATROPIUM-ALBUTEROL 3 ML NEB INHALATION SCH ×4 (09:53→20:18)
[2023-01-28] MEDS: AMPICILLIN-SULBACTAM 3 GM in SODIUM CHLORIDE 0.9% 100 ML IVPB SCH ×2 (10:22→16:03)
[2023-01-28] MEDS: guaiFENesin 600 MG TABLET.ER PO SCH ×2 (10:23→20:10)
[2023-01-28] MEDS: SODIUM CHLORIDE 0.9% 1,000 ML IV SCH ×2 (10:23→20:33)
[2023-01-28] MEDS ORDERED: SODIUM CHLORIDE 0.9% 2,000 ML IV ONE (10:35)
[2023-01-28 11:53] LABS: Glucose,Whole Blood 245 mg/dL (70-110)
[2023-01-28] MEDS ORDERED: DEXTROSE 50% SYRINGE 50 ML IVP PRN ×2 (11:58)
[2023-01-28] MEDS: INSULIN ASPART (NovoLOG) 100 UNIT/ML VIAL SQ SCH ×3 (12:18→20:31)
[2023-01-28 12:35] VITALS: BMI 17.2
--- NOTE | 2023-01-28 12:52 | P.HPIM ---
History of Present Illness H&P Date: 01/28/23 Chief Complaint: Altered mentation * 32-year-old lady presented emergency department with complaints of shortness of breath, headache, chest pain and impaired mentation. Patient was noted in the emergency room early in the day and was diagnosed with bronchitis and discharged home on antibiotic. Patient had worsening of her symptoms and was brought in by family for worsening cough, headache and chest pain. * Workup in ER included CBC which showed WBC count of 17.8, neutrophil of 15.1 d-dimer of 0.69, serum chemistry showed renal profile serum left scratch within normal limits magnesium of 1.5 * At the time of presentation in ED patient was noted to be confused, CT brain was obtained negative for acute intracranial abnormality, does show opacified right nasal passage is air-fluid level in right maxillary sinus consistent with acute sinusitis * While in ER patient was given breathing treatments with DuoNeb, IV Solu-Medrol IV Zofran 1 L fluid bolus and admitted for further workup * Considering elevated d-dimer, CT chest was obtained which was negative for pulmonary embolism * Patient admitted to medical floor with consultations from pulmonary medicine for acute hypoxia as well REVIEW OF SYSTEMS: Headache, confusion, shortness of breath, cough CONSTITUTIONAL: No fever, no malaise, no fatigue. HEENT: No recent visual problems or hearing problems. Denied any sore throat. CARDIOVASCULAR: No chest pain, orthopnea, PND, no palpitations, no syncope. PULMONARY: , no hemoptysis. GASTROINTESTINAL: No diarrhea, no nausea, no vomiting, no abdominal pain. NEUROLOGICAL: No headaches, no weakness, no numbness. HEMATOLOGICAL: Denies any bleeding or petechiae. GENITOURINARY: Denies any burning micturition, frequency, or urgency. MUSCULOSKELETAL/RHEUMATOLOGICAL: Denies any joint pain, swelling, or any muscle pain. ENDOCRINE: Denies any polyuria or polydipsia. PHYSICAL EXAMINATION: GENERAL: The patient is alert and oriented x3, nasal cannula in place, ill appearance HEENT: Pupils are round and equally reacting to light. EOMI. CARDIOVASCULAR: S1 and S2 present. No murmurs, rubs, or gallops. PULMONARY: Chest is clear to auscultation, no wheezing or crackles. ABDOMEN: Soft, nontender, nondistended, normoactive bowel sounds. No palpable organomegaly. MUSCULOSKELETAL: No joint swelling or deformity. EXTREMITIES: No cyanosis, clubbing, or pedal edema. NEUROLOGICAL: Gross neurological examination did not reveal any focal deficits. SKIN: No rashes. Past Medical History Past Medical History: No Reported History Additional Past Medical History / Comment(s): frequent diarrhea, History of Any Multi-Drug Resistant Organisms: None Reported Additional Past Surgical History / Comment(s): D&C Past Anesthesia/Blood Transfusion Reactions: Motion Sickness Past Psychological History: Anxiety, Bipolar, Depression Additional Psychological History / Comment(s): . Smoking Status: Current some day smoker, Vaper Past Alcohol Use History: Occasional Additional Past Alcohol Use History / Comment(s): smokes 1/2 PPD for 10 yrs Past Drug Use History: None Reported - Past Family History Mother Family Medical History: No Reported History Medications and Allergies Home Medications Medication Instructions Recorded Confirmed Type Azithromycin [Zithromax Z Pack] See Taper PO DIRECTED 01/27/23 01/27/23 History Benzonatate [Tessalon Perles] 100 mg PO TID PRN #15 capsule 01/27/23 01/27/23 Rx Allergies Allergy/AdvReac Type Severity Reaction Status Date / Time No Known Allergies Allergy Verified 01/27/23 21:54 Physical Exam Vitals: Vital Signs Temp Pulse Pulse Resp BP BP Pulse Ox 01/28/23 07:32 97.7 F 82 16 89/59 96 01/28/23 02:59 18 01/28/23 02:38 97.8 F 94 18 108/67 96 01/28/23 01:42 90 18 98/71 96 01/27/23 23:03 99.2 F 96 20 107/62 95 01/27/23 22:18 93 01/27/23 22:05 90 01/27/23 20:30 98.7 F 95 16 73/44 91 L 01/27/23 20:25 98.0 F 114 H 18 114/78 95 Intake and Output 01/27/23 01/28/23 01/28/23 22:59 06:59 14:59 Other: Voiding Method Toilet Toilet # Voids 1 1 Weight 45.359 kg 45.359 kg Results CBC & Chem 7: 01/27/23 21:15 01/27/23 21:15 Labs: Abnormal Lab Results - Last 24 Hours (Table) 01/27/23 01/27/2323 Range/Units 21:15 21:15 21:15 WBC 17.8 H (3.8-10.6) k/uL Neutrophils # 15.1 H (1.3-7.7) k/uL Eosinophils # 0.8 H (0-0.7) k/uL D-Dimer 0.69 H (<0.60) mg/L FEU Carbon Dioxide 21 L (22-30) mmol/L BUN 4 L (7-17) mg/dL Creatinine 0.47 L (0.52-1.04) mg/dL Glucose 104 H (74-99) mg/dL POC Glucose (mg/dL) (70-110) mg/dL Magnesium 1.5 L (1.6-2.3) mg/dL 01/28/23 Range/Units 07:30 WBC (3.8-10.6) k/uL Neutrophils # (1.3-7.7) k/uL Eosinophils # (0-0.7) k/uL D-Dimer (<0.60) mg/L FEU Carbon Dioxide (22-30) mmol/L BUN (7-17) mg/dL Creatinine (0.52-1.04) mg/dL Glucose (74-99) mg/dL POC Glucose (mg/dL) 146 H (70-110) mg/dL Magnesium (1.6-2.3) mg/dL Thrombosis Risk Factor Assmnt - Choose All That Apply Any of the Below Risk Factors Present?: No Assessment and Plan Assessment: Assessment and plan Acute bronchitis with acute hypoxia Acute right mastoid sinusitis Sepsis secondary to mastoiditis Acute metabolic encephalopathy * In regards to acute bronchitis, continue patient on IV Solu-Medrol, continue breathing treatments, pulmonary medicine consulted continue Mucinex, oxygen supplementation, patient tested negative for RSV and Covid * In regards to acute mastoiditis CT head obtained and reviewed patient started on IV Unasyn follow-up on inflammatory markers continue Mucinex * In regards to sepsis secondary to mastoiditis we will check lactate levels W BC count elevated at 17.8, continue with fluid resuscitation, lactate levels elevated 2 L of fluid bolus given and follow-up lactate ordered, blood cultures ordered * In regards to metabolic encephalopathy likely secondary to underlying infectious process continue to monitor electrolyte panel * Lovenox for DVT prophylaxis, CODE STATUS is full code Time with Patient: Greater than 30
--- NOTE | 2023-01-28 13:44 | P.CNPUL ---
History of Present Illness Consult date: 01/28/23 Requesting physician: Ramona James Reason for consult: dyspnea, cough Chief complaint: Shortness of breath, cough, chest pain History of present illness: This is a pleasant 32-year-old female patient with a known history of chronic tobacco dependence since age 15, vaping, bipolar disorder. She presented to the emergency room yesterday with complaints of shortness of breath, cough or congestion. She was given antibiotics and Tessalon Perles and discharged home. She came back later in the evening with complaints of severe shortness of breath, severe headache, crying in pain, chest pain. Computed tomography scan of the brain revealed no acute intracranial CT abnormality. There was opacified right nasal passage with paranasal sinus disease suspicious for acute sinusitis. CT angiogram ruled out pulmonary embolism. Lung turner unremarkable. No acute process. White count 17.8. Hemoglobin 14.6. Platelets 291. Sodium 138. Potassium 3.8. Bicarb 21. BUN 4. Creatinine 0.47. Glucose 104. TSH 0.57. Urinalysis clean. Urine drug analysis clean. She is seen today in consultation on the regular medical floor. She is currently sitting up in bed. Awake and alert in no acute distress. Feeling better today compared to yesterday. Maintaining O2 saturations up to 98% on 2 L/m per nasal cannula. She's been afebrile. Hemodynamically stable. She was initiated on antibiotics in the form of Unasyn. Continued on DuoNeb inhalations, Tessalon Perles, Solu-Medrol. Normal saline at 100 ML's per hour. Review of Systems REVIEW OF SYSTEMS: CONSTITUTIONAL: Denies any recent significant weight loss or weight gain. EYES: Denies change in vision. EARS, NOSE, MOUTH, THROAT: Positive for headaches, denies sore throat. CARDIOVASCULAR: Positive for chest pain, no palpitations or syncopal episodes. RESPIRATORY: Positive for shortness of breath, cough, congestion no hemoptysis. GASTROINTESTINAL: Denies change in appetite, denies abdominal pain GENITOURINARY: Denies hematuria, denies infections. MUSKULOSKELETAL: Denies pain, denies swelling. INTEGUMENTARY: Denies rash, denies eczema. NEUROLOGICAL: Denies recent memory loss, no recent seizure activity. PSYCHIATRIC: Denies anxiety, denies depression. HEMATOLOGIC/LYMPHATIC: Denies anemia, denies enlarged lymph nodes. Past Medical History Past Medical History: No Reported History Additional Past Medical History / Comment(s): frequent diarrhea, History of Any Multi-Drug Resistant Organisms: None Reported Additional Past Surgical History / Comment(s): D&C Past Anesthesia/Blood Transfusion Reactions: Motion Sickness Past Psychological History: Anxiety, Bipolar, Depression Additional Psychological History / Comment(s): . Smoking Status: Current some day smoker, Vaper Past Alcohol Use History: Occasional Additional Past Alcohol Use History / Comment(s): smokes 1/2 PPD for 10 yrs Past Drug Use History: None Reported - Past Family History Mother Family Medical History: No Reported History Medications and Allergies Home Medications Medication Instructions Recorded Confirmed Type Azithromycin [Zithromax Z Pack] See Taper PO DIRECTED 01/27/23 01/27/23 History Benzonatate [Tessalon Perles] 100 mg PO TID PRN #15 capsule 01/27/23 01/27/23 Rx Allergies Allergy/AdvReac Type Severity Reaction Status Date / Time No Known Allergies Allergy Verified 01/27/23 21:54 Physical Exam Vitals: Vital Signs Temp Pulse Pulse Resp BP BP Pulse Ox 01/28/23 13:28 92 01/28/23 13:18 92 01/28/23 10:38 98.0 F 101 H 16 106/63 98 01/28/23 10:02 97 01/28/23 09:57 97 01/28/23 09:56 97 01/28/23 07:32 97.7 F 82 16 89/59 96 01/28/23 02:59 18 01/28/23 02:38 97.8 F 94 18 108/67 96 01/28/23 01:42 90 18 98/71 96 01/27/23 23:03 99.2 F 96 20 107/62 95 01/27/23 22:18 93 01/27/23 22:05 90 01/27/23 20:30 98.7 F 95 16 73/44 91 L 01/27/23 20:25 98.0 F 114 H 18 114/78 95 Intake and Output 01/27/23 01/28/23 01/28/23 22:59 06:59 14:59 Other: Voiding Method Toilet Toilet # Voids 1 1 Weight 45.359 kg 45.359 kg 45.359 kg GENERAL EXAM: Alert, active, pleasant 32-year-old female, on 2 L nasal cannula, comfortable in no apparent distress. HEAD: Normocephalic. EYES: Normal reaction of pupils, equal size. NOSE: Clear with pink turbinates. THROAT: No erythema or exudates. NECK: No masses, no JVD. CHEST: No chest wall deformity. LUNGS: Equal air entry with no crackles, wheeze, rhonchi or dullness. CVS: S1 and S2 normal with no audible murmur, regular rhythm. ABDOMEN: No hepatosplenomegaly, normal bowel sounds, no guarding or rigidity. SPINE: No scoliosis or deformity SKIN: No rashes CENTRAL NERVOUS SYSTEM: No focal deficits, tone is normal in all 4 extremities. EXTREMITIES: There is no peripheral edema. No clubbing, no cyanosis. Peripheral pulses are intact. Results - Laboratory Findings CBC and BMP: 01/27/23 21:15 01/27/23 21:15 PT/INR, D-dimer PT 11.2 sec (10.0-12.5) 01/27/23 21:15 INR 1.0 (<1.2) 01/27/23 21:15 D-Dimer 0.69 mg/L FEU (<0.60) H 01/27/23 21:15 Abnormal lab findings: Abnormal Labs 01/27/23 01/27/23 01/27/23 21:15 21:15 21:15 WBC 17.8 H Neutrophils # 15.1 H Eosinophils # 0.8 H D-Dimer 0.69 H Carbon Dioxide 21 L BUN 4 L Creatinine 0.47 L Glucose 104 H POC Glucose (mg/dL) Plasma Lactic Acid Kee Magnesium 1.5 L 01/28/23 01/28/23 01/28/23 07:30 09:52 11:51 WBC Neutrophils # Eosinophils # D-Dimer Carbon Dioxide BUN Creatinine Glucose POC Glucose (mg/dL) 146 H 245 H Plasma Lactic Acid Kee 3.5 H* Magnesium 01/28/23 12:42 WBC Neutrophils # Eosinophils # D-Dimer Carbon Dioxide BUN Creatinine Glucose POC Glucose (mg/dL) Plasma Lactic Acid Kee 2.4 H* Magnesium - Diagnostic Findings Chest x-ray: image reviewed CT scan - chest: image reviewed Assessment and Plan Assessment: Acute upper respiratory tract infectiontracheobronchitis without evidence of pneumonia Atypical chest pain, pulmonary embolism ruled out. Lung turner clear Headaches secondary to possible sinusitis History of chronic tobacco dependence History of the pain History of bipolar disorder Plan: The patient was seen and evaluated Chest x-ray, CAT scans, brain CT, medications and labs reviewed No acute pulmonary process Recommend azithromycin 3 days Recommend a Medrol Dosepak Titrate down the FiO2 as tolerated We will continue to follow and make further recommendations based on her cl inical status I have personally seen and examined the patient, performed the documentation and the assessment and plan as written. Number of minutes spent on the visit: 20.
[2023-01-28 16:45] LABS: Glucose,Whole Blood 192 mg/dL (70-110)
[2023-01-28] MEDS ORDERED: SODIUM CHLORIDE 0.9% 500 ML 500 ML IV ONE (20:12)
[2023-01-28 20:14] LABS: Glucose,Whole Blood 147 mg/dL (70-110)
[2023-01-29] MEDS: AMPICILLIN-SULBACTAM 3 GM in SODIUM CHLORIDE 0.9% 100 ML IVPB SCH ×3 (00:01→17:22)
[2023-01-29] MEDS: SODIUM CHLORIDE 0.9% 1,000 ML IV SCH ×2 (00:02→17:24)
[2023-01-29] MEDS: methylPREDNISolone SOD SUCCI 125 MG/2 ML VIAL IV SCH ×2 (04:07→08:13)
[2023-01-29 07:08] LABS: Glucose,Whole Blood 151 mg/dL (70-110)
[2023-01-29] MEDS: IPRATROPIUM-ALBUTEROL 3 ML NEB INHALATION SCH ×4 (07:27→19:27)
[2023-01-29] MEDS: INSULIN ASPART (NovoLOG) 100 UNIT/ML VIAL SQ SCH ×4 (08:10→20:24)
[2023-01-29] MEDS: ENOXAPARIN 40 MG/0.4 ML SYRINGE SQ SCH (08:11)
[2023-01-29] MEDS: guaiFENesin 600 MG TABLET.ER PO SCH ×2 (08:11→20:39)
--- NOTE | 2023-01-29 08:51 | P.CONS ---
History of Present Illness - Reason for Consult Consult date: 01/28/23 Severe mastoiditis, sepsis Requesting physician: Ramona James - Chief Complaint Shortness of breath x few days - History of Present Illness Patient is a 32-year-old female with a past medical history significant for anxiety bipolar depression current smoker presented to the hospital for evaluation of increasing shortness of breath cough and congestion patient's symptom has been going on for few days before presentation to the hospital patient cough is moderate intensity having up any sputum patient denies having any headache or any pain in the ear or any drainage from the ear, patient has been complaining of some sinus pressure more of a dull aching mild to moderate intensity congestion and some drainage which at times can be purulent, the patient denies any nausea vomiting abdominal pain or diarrhea patient on presentation to the hospital was afebrile and no fever have recorded subsequently patient was not tachycardic hypotensive or hypoxic and no need for supplemental oxygen patient did have white count of 17.8 with a left shift creatinine was 0.47 liver exams are normal urine has been negative urine drug screen was negative patient did have a CT of the brain no acute intracranial CT abnormality opacified right nasal passage with paranasal sinus disease including air-fluid level in the right maxillary sinus correlate for acute sinusitis brittney chapasydney did have a CT angiogram of the chest that was negative for PE no muscle consolidation in the lungs infectious he was consulted regarding severe mastoiditis or sepsis patient is currently on Unasyn Review of Systems Positive point and negatives has been mentioned in the HPI, complete review of systems was performed and all other systems are negative Past Medical History Past Medical History: No Reported History Additional Past Medical History / Comment(s): frequent diarrhea, History of Any Multi-Drug Resistant Organisms: None Reported Additional Past Surgical History / Comment(s): D&C Past Anesthesia/Blood Transfusion Reactions: Motion Sickness Past Psychological History: Anxiety, Bipolar, Depression Additional Psychological History / Comment(s): . Smoking Status: Current some day smoker, Vaper Past Alcohol Use History: Occasional Additional Past Alcohol Use History / Comment(s): smokes 1/2 PPD for 10 yrs Past Drug Use History: None Reported - Past Family History Mother Family Medical History: No Reported History Medications and Allergies Home Medications Medication Instructions Recorded Confirmed Type Amoxic-Pot Clav 875-125Mg 1 tab PO Q12HR 7 Days #14 tab 01/30/23 Rx [Augmentin 875-125] Benzocaine/Menthol Lozeng [Cepacol 1 each MUCOUS MEM Q4HR PRN 7 Days 01/30/23 Rx lozenge] #42 lozenge guaiFENesin [Mucinex] 600 mg PO Q12HR 5 Days #10 tab 01/30/23 Rx predniSONE [Deltasone] 20 mg PO DAILY 3 Days #3 tab 01/30/23 Rx Allergies Allergy/AdvReac Type Severity Reaction Status Date / Time No Known Allergies Allergy Verified 01/27/23 21:54 Physical Exam Vitals: Vital Signs Temp Pulse Pulse Resp BP BP Pulse Ox 01/28/23 13:52 97.7 F 106 H 16 103/65 95 01/28/23 13:28 92 01/28/23 13:18 92 01/28/23 10:38 98.0 F 101 H 16 106/63 98 01/28/23 10:02 97 01/28/23 09:57 97 01/28/23 09:56 97 01/28/23 07:32 97.7 F 82 16 89/59 96 01/28/23 02:59 18 01/28/23 02:38 97.8 F 94 18 108/67 96 01/28/23 01:42 90 18 98/71 96 01/27/23 23:03 99.2 F 96 20 107/62 95 01/27/23 22:18 93 01/27/23 22:05 90 01/27/23 20:30 98.7 F 95 16 73/44 91 L 01/27/23 20:25 98.0 F 114 H 18 114/78 95 Intake and Output 01/28/23 01/28/23 01/28/23 06:59 14:59 22:59 Other: Voiding Method Toilet Toilet # Voids 1 1 Weight 45.359 kg 45.359 kg GENERAL DESCRIPTION: Middle-aged female lying in bed, no distress. No tachypnea or accessory muscle of respiration use. HEENT: Shows Pallor , no scleral icterus. Oral mucous membrane is dry. No pharyngeal erythema or thrush NECK: Trachea central, no thyromegaly. LUNGS: Unlabored breathing. Decreased intensity of breath sounds HEART: S1, S2, regular rate and rhythm. No loud murmur ABDOMEN: Soft, no tenderness , EXTREMITIES: No edema of feet. SKIN: No rash, no masses palpable. NEUROLOGICAL: The patient is awake, alert, oriented x3, mood and affect normal. Results CBC & Chem 7: 01/30/23 04:42 01/30/23 04:42 Labs: Abnormal Lab Results - Last 24 Hours (Table) 01/27/23 01/27/23 01/27/23 Range/Units 21:15 21:15 21:15 WBC 17.8 H (3.8-10.6) k/uL Neutrophils # 15.1 H (1.3-7.7) k/uL Eosinophils # 0.8 H (0-0.7) k/uL D-Dimer 0.69 H (<0.60) mg/L FEU Carbon Dioxide 21 L (22-30) mmol/L BUN 4 L (7-17) mg/dL Creatinine 0.47 L (0.52-1.04) mg/dL Glucose 104 H (74-99) mg/dL POC Glucose (mg/dL) (70-110) mg/dL Plasma Lactic Acid Kee (0.7-2.0) mmol/L Magnesium 1.5 L (1.6-2.3) mg/dL 01/28/23 01/28/23 01/28/23 Range/Units 07:30 09:52 11:51 WBC (3.8-10.6) k/uL Neutrophils # (1.3-7.7) k/uL Eosinophils # (0-0.7) k/uL D-Dimer (<0.60) mg/L FEU Carbon Dioxide (22-30) mmol/L BUN (7-17) mg/dL Creatinine (0.52-1.04) mg/dL Glucose (74-99) mg/dL POC Glucose (mg/dL) 146 H 245 H (70-110) mg/dL Plasma Lactic Acid Kee 3.5 H* (0.7-2.0) mmol/L Magnesium (1.6-2.3) mg/dL 01/28/23 Range/Units 12:42 WBC (3.8-10.6) k/uL Neutrophils # (1.3-7.7) k/uL Eosinophils # (0-0.7) k/uL D-Dimer (<0.60) mg/L FEU Carbon Dioxide (22-30) mmol/L BUN (7-17) mg/dL Creatinine (0.52-1.04) mg/dL Glucose (74-99) mg/dL POC Glucose (mg/dL) (70-110) mg/dL Plasma Lactic Acid Kee 2.4 H* (0.7-2.0) mmol/L Magnesium (1.6-2.3) mg/dL Assessment and Plan (1) Leukocytosis Current Visit: Yes Status: Acute Code(s): D72.829 - ELEVATED WHITE BLOOD CELL COUNT, UNSPECIFIED SNOMED Code(s): 011635284 (2) Sinusitis Current Visit: Yes Status: Acute Code(s): J32.9 - CHRONIC SINUSITIS, UNSPECIFIED SNOMED Code(s): 74346668 Plan: 1patient was in the hospital shortness of breath which is multifactorial, patient did have a CT angiogram of the chest that was negative for PE or pneumo alvarez, patient also have a pressure to the right maxillary sinus area with some tenderness and purulent drainage with abnormal CT concerning for possible bacterial sinusitis clinically no evidence of any mastoiditis and then was seen on CT 2-patient to continue with Unasyn 3 g every 8 hours that can be transition to oral Augmentin on discharge We will follow on clinical condition and cultures to further adjust medication if needed Thank you for this consultation we will follow the patient along with you Dictation was produced using [employer] dictation software. please excuse any grammatical, word or spelling errors. Time with Patient: Greater than 30
[2023-01-29 09:09] LABS: HCT 35.4 % (37.2-46.3); HGB 12.8 g/dL (12.0-15.0); MCH 33.3 pg (27.0-32.0); MCHC 36.2 g/dL (32.0-37.0); MCV 92.2 FL (80.0-97.0); Mean Platelet Volume 11.3 FL (9.5-12.2); NRBC Per 100 WBC 0 X 10*3/uL (0.00-0.01); Platelet Count 284 X 10*3/uL (140-440); RBC 3.84 X 10*6/uL (4.10-5.20); RDW 13.2 % (11.5-14.5); WBC 26.72 X 10*3/uL (4.50-10.00)
[2023-01-29] MEDS ORDERED: methylPREDNISolone SOD SUCCI 40 MG/ML 1 ML VIAL IV SCH (09:30)
[2023-01-29 09:41] LABS: Chloride 110 mmol/L (96-109); Glucose 154 mg/dL (70-110); Potassium 4.3 mmol/L (3.5-5.5); Sodium 141 mmol/L (135-145)
[2023-01-29 09:42] LABS: Calcium 8.4 mg/dL (8.7-10.3); Carbon Dioxide 21.9 mmol/L (21.6-31.8)
[2023-01-29 10:20] LABS: Basophils # (A) 0.04 X 10*3/uL (0.00-0.10); Basophils % (A) 0.1 %; Eosinophils # (A) 0 X 10*3/uL (0.04-0.35); Eosinophils % (A) 0 %; Lymphocytes # (A) 0.89 X 10*3/uL (0.90-5.00); Lymphocytes % (A) 3.3 %; Monocytes # (A) 0.77 X 10*3/uL (0.20-1.00); Monocytes % (A) 2.9 %; Neutrophils # (A) 24.83 X 10*3/uL (1.80-7.70); RBC Morphology Normal (Normal)
--- NOTE | 2023-01-29 11:48 | P.PN ---
Subjective Progress Note Date: 01/29/23 * 32-year-old lady presented emergency department with complaints of shortness of breath, headache, chest pain and impaired mentation. Patient was noted in the emergency room early in the day and was diagnosed with bronchitis and discharged home on antibiotic. Patient had worsening of her symptoms and was brought in by family for worsening cough, headache and chest pain. * Workup in ER included CBC which showed WBC count of 17.8, neutrophil of 15.1 d-dimer of 0.69, serum chemistry showed renal profile serum left scratch within normal limits magnesium of 1.5 * At the time of presentation in ED patient was noted to be confused, CT brain was obtained negative for acute intracranial abnormality, does show opacified right nasal passage is air-fluid level in right maxillary sinus consistent with acute sinusitis * While in ER patient was given breathing treatments with DuoNeb, IV Solu-Medrol IV Zofran 1 L fluid bolus and admitted for further workup * Considering elevated d-dimer, CT chest was obtained which was negative for pulmonary embolism * Patient admitted to medical floor with consultations from pulmonary medicine for acute hypoxia as well * 01/29/2023: Patient seen and evaluated bedside, patient alert and oriented 4, headache has improved, patient states her breathing has improved as well. Patient seen by pulmonary medicine today, infectious disease consulted as well / WBC count trending up 27,000 REVIEW OF SYSTEMS: Headache, confusion, shortness of breath, cough IMRPOVED CONSTITUTIONAL: No fever, no malaise, no fatigue. HEENT: No recent visual problems or hearing problems. Denied any sore throat. CARDIOVASCULAR: No chest pain, orthopnea, PND, no palpitations, no syncope. PULMONARY: , no hemoptysis. GASTROINTESTINAL: No diarrhea, no nausea, no vomiting, no abdominal pain. NEUROLOGICAL: No headaches, no weakness, no numbness. HEMATOLOGICAL: Denies any bleeding or petechiae. GENITOURINARY: Denies any burning micturition, frequency, or urgency. MUSCULOSKELETAL/RHEUMATOLOGICAL: Denies any joint pain, swelling, or any muscle pain. ENDOCRINE: Denies any polyuria or polydipsia. PHYSICAL EXAMINATION: GENERAL: The patient is alert and oriented x3, nasal cannula in place, ill appearance HEENT: Pupils are round and equally reacting to light. EOMI. CARDIOVASCULAR: S1 and S2 present. No murmurs, rubs, or gallops. PULMONARY: Chest is clear to auscultation, no wheezing or crackles. ABDOMEN: Soft, nontender, nondistended, normoactive bowel sounds. No palpable organomegaly. MUSCULOSKELETAL: No joint swelling or deformity. EXTREMITIES: No cyanosis, clubbing, or pedal edema. NEUROLOGICAL: Gross neurological examination did not reveal any focal deficits. SKIN: No rashes. Objective - Vital Signs Vital signs: Vital Signs Temp 97.9 F 01/29/23 07:03 Pulse 96 01/29/23 07:03 Resp 19 01/29/23 07:03 BP 97/58 01/29/23 07:03 Pulse Ox 94 L 01/29/23 07:03 FiO2 Intake & Output 01/28/23 01/29/23 01/29/23 18:59 06:59 18:59 Weight 45.359 kg Other: Voiding Method Toilet Toilet Toilet # Voids 3 1 1 # Bowel Movements 1 - Labs CBC & Chem 7: 01/29/23 05:34 01/29/23 05:34 Labs: Abnormal Lab Results - Last 24 Hours (Table) 01/28/23 01/28/23 01/28/23 Range/Units 11:51 12:42 15:23 WBC (4.50-10.00) X 10*3/uL RBC (4.10-5.20) X 10*6/uL Hct (37.2-46.3) % MCH (27.0-32.0) pg Neutrophils # (1.80-7.70) X 10*3/uL Lymphocytes # (0.90-5.00) X 10*3/uL Eosinophils # (0.04-0.35) X 10*3/uL Chloride (96-109) mmol/L BUN (9.0-27.0) mg/dL Creatinine (0.6-1.5) mg/dL Glucose (70-110) mg/dL POC Glucose (mg/dL) 245 H (70-110) mg/dL Plasma Lactic Acid Kee 2.4 H* 2.8 H* (0.7-2.0) mmol/L Calcium (8.7-10.3) mg/dL C-Reactive Protein (0.00-0.80) mg/dL 01/28/23 01/28/23 01/28/23 Range/Units 16:40 18:21 20:12 WBC (4.50-10.00) X 10*3/uL RBC (4.10-5.20) X 10*6/uL Hct (37.2-46.3) % MCH (27.0-32.0) pg Neutrophils # (1.80-7.70) X 10*3/uL Lymphocytes # (0.90-5.00) X 10*3/uL Eosinophils # (0.04-0.35) X 10*3/uL Chloride (96-109) mmol/L BUN (9.0-27.0) mg/dL Creatinine (0.6-1.5) mg/dL Glucose (70-110) mg/dL POC Glucose (mg/dL) 192 H 147 H (70-110) mg/dL Plasma Lactic Acid Kee 3.6 H* (0.7-2.0) mmol/L Calcium (8.7-10.3) mg/dL C-Reactive Protein (0.00-0.80) mg/dL 01/29/23 01/29/23 01/29/23 Range/Units 05:34 05:34 07:06 WBC 26.72 H (4.50-10.00) X 10*3/uL RBC 3.84 L (4.10-5.20) X 10*6/uL Hct 35.4 L (37.2-46.3) % MCH 33.3 H (27.0-32.0) pg Neutrophils # 24.83 H (1.80-7.70) X 10*3/uL Lymphocytes # 0.89 L (0.90-5.00) X 10*3/uL Eosinophils # 0 L (0.04-0.35) X 10*3/uL Chloride 110 H (96-109) mmol/L BUN 6.0 L (9.0-27.0) mg/dL Creatinine 0.5 L (0.6-1.5) mg/dL Glucose 154 H (70-110) mg/dL POC Glucose (mg/dL) 151 H (70-110) mg/dL Plasma Lactic Acid Kee (0.7-2.0) mmol/L Calcium 8.4 L (8.7-10.3) mg/dL C-Reactive Protein 0.90 H (0.00-0.80) mg/dL Assessment and Plan Assessment: Assessment and plan Acute bronchitis with acute hypoxia Acute right mastoid sinusitis Sepsis secondary to mastoiditis Acute metabolic encephalopathy * In regards to acute bronchitis, continue patient on IV Solu-Medrol, continue breathing treatments, pulmonary medicine consulted continue Mucinex, oxygen supplementation, patient tested negative for RSV and Covid * In regards to acute mastoiditis CT head obtained and reviewed patient started on IV Unasyn follow-up on inflammatory markers continue Mucinex * In regards to sepsis secondary to mastoiditis we will check lactate levels W BC count elevated at 17.8K> 27K, continue with fluid resuscitation, lactate levels IMPROVED >> blood cultures ordered * In regards to metabolic encephalopathy likely secondary to underlying infectious process continue to monitor electrolyte panel * Lovenox for DVT prophylaxis * CODE STATUS is full code Time with Patient: Greater than 30
[2023-01-29 12:10] LABS: Glucose,Whole Blood 145 mg/dL (70-110)
--- NOTE | 2023-01-29 14:03 | P.PN ---
Subjective Progress Note Date: 01/29/23 This is a pleasant 32-year-old female patient with a known history of chronic tobacco dependence since age 15, vaping, bipolar disorder. She presented to the emergency room yesterday with complaints of shortness of breath, cough or congestion. She was given antibiotics and Tessalon Perles and discharged home. She came back later in the evening with complaints of severe shortness of breath, severe headache, crying in pain, chest pain. Computed tomography scan of the brain revealed no acute intracranial CT abnormality. There was opacified right nasal passage with paranasal sinus disease suspicious for acute sinusitis. CT angiogram ruled out pulmonary embolism. Lung turner unremarkable. No acute process. White count 17.8. Hemoglobin 14.6. Platelets 291. Sodium 138. Potassium 3.8. Bicarb 21. BUN 4. Creatinine 0.47. Glucose 104. TSH 0.57. Urinalysis clean. Urine drug analysis clean. She is seen today in consultation on the regular medical floor. She is currently sitting up in bed. Awake and alert in no acute distress. Feeling better today compared to yesterday. Maintaining O2 saturations up to 98% on 2 L/m per nasal cannula. She's been afebrile. Hemodynamically stable. She was initiated on antibiotics in the form of Unasyn. Continued on DuoNeb inhalations, Tessalon Perles, Solu-Medrol. Normal saline at 100 ML's per hour. The patient is seen today 01/29/2023 in follow-up on the regular medical floor. She is currently sitting up in bed. Having breakfast. Awake and alert in no acute distress. Breathing easier today compared to yesterday. Maintaining O2 saturations in the mid 90s on room air. Afebrile. Hemodynamically stable. Blood cultures reveal no growth to date. White count 26.7. Hemoglobin 12.8. Platelets 284. Sodium 141. Potassium 4.3. Bicarb 22. BUN 6. Creatinine 0.5. Glucose 154. C-reactive protein 0.90. She is continued on Unasyn per ID service. Continued on bronchodilators, steroids, Lovenox for DVT prophylaxis. Normal saline at 100 ML's per hour. Lactic acid 1.9. Objective - Vital Signs Vital signs: Vital Signs Temp 98.8 F 01/29/23 12:06 Pulse 99 01/29/23 12:06 Resp 18 01/29/23 12:06 BP 112/65 01/29/23 12:06 Pulse Ox 95 01/29/23 12:06 FiO2 Intake & Output 01/28/23 01/29/23 01/29/23 18:59 06:59 18:59 Weight 45.359 kg Other: Voiding Method Toilet Toilet Toilet # Voids 3 1 1 # Bowel Movements 1 - Exam GENERAL EXAM: Alert, 32-year-old female, on room air, comfortable in no apparent distress. HEAD: Normocephalic. EYES: Normal reaction of pupils, equal size. NOSE: Clear with pink turbinates. THROAT: No erythema or exudates. NECK: No masses, no JVD. CHEST: No chest wall deformity. LUNGS: Equal air entry with no crackles, wheeze, rhonchi or dullness. CVS: S1 and S2 normal with no audible murmur, regular rhythm. ABDOMEN: No hepatosplenomegaly, normal bowel sounds, no guarding or rigidity. SPINE: No scoliosis or deformity SKIN: No rashes CENTRAL NERVOUS SYSTEM: No focal deficits, tone is normal in all 4 extremities. EXTREMITIES: There is no peripheral edema. No clubbing, no cyanosis. Peripheral pulses are intact. - Labs CBC & Chem 7: 01/29/23 05:34 01/29/23 05:34 Labs: Abnormal Lab Results - Last 24 Hours (Table) 01/28/23 01/28/23 01/28/23 Range/Units 15:23 16:40 18:21 WBC (4.50-10.00) X 10*3/uL RBC (4.10-5.20) X 10*6/uL Hct (37.2-46.3) % MCH (27.0-32.0) pg Neutrophils # (1.80-7.70) X 10*3/uL Lymphocytes # (0.90-5.00) X 10*3/uL Eosinophils # (0.04-0.35) X 10*3/uL Chloride (96-109) mmol/L BUN (9.0-27.0) mg/dL Creatinine (0.6-1.5) mg/dL Glucose (70-110) mg/dL POC Glucose (mg/dL) 192 H (70-110) mg/dL Plasma Lactic Acid Kee 2.8 H* 3.6 H* (0.7-2.0) mmol/L Calcium (8.7-10.3) mg/dL C-Reactive Protein (0.00-0.80) mg/dL 01/28/23 01/29/23 01/29/23 Range/Units 20:12 05:34 05:34 WBC 26.72 H (4.50-10.00) X 10*3/uL RBC 3.84 L (4.10-5.20) X 10*6/uL Hct 35.4 L (37.2-46.3) % MCH 33.3 H (27.0-32.0) pg Neutrophils # 24.83 H (1.80-7.70) X 10*3/uL Lymphocytes # 0.89 L (0.90-5.00) X 10*3/uL Eosinophils # 0 L (0.04-0.35) X 10*3/uL Chloride 110 H (96-109) mmol/L BUN 6.0 L (9.0-27.0) mg/dL Creatinine 0.5 L (0.6-1.5) mg/dL Glucose 154 H (70-110) mg/dL POC Glucose (mg/dL) 147 H (70-110) mg/dL Plasma Lactic Acid Kee (0.7-2.0) mmol/L Calcium 8.4 L (8.7-10.3) mg/dL C-Reactive Protein 0.90 H (0.00-0.80) mg/dL 01/29/23 01/29/23 Range/Units 07:06 12:08 WBC (4.50-10.00) X 10*3/uL RBC (4.10-5.20) X 10*6/uL Hct (37.2-46.3) % MCH (27.0-32.0) pg Neutrophils # (1.80-7.70) X 10*3/uL Lymphocytes # (0.90-5.00) X 10*3/uL Eosinophils # (0.04-0.35) X 10*3/uL Chloride (96-109) mmol/L BUN (9.0-27.0) mg/dL Creatinine (0.6-1.5) mg/dL Glucose (70-110) mg/dL POC Glucose (mg/dL) 151 H 145 H (70-110) mg/dL Plasma Lactic Acid Kee (0.7-2.0) mmol/L Calcium (8.7-10.3) mg/dL C-Reactive Protein (0.00-0.80) mg/dL Microbiology - Last 24 Hours (Table) 01/27/23 21:15 Blood Culture - Preliminary Blood 01/27/23 21:30 Blood Culture - Preliminary Blood Assessment and Plan Assessment: Acute upper respiratory tract infectiontracheobronchitis without evidence of pneumonia Atypical chest pain, pulmonary embolism ruled out. Lung turner clear Headaches secondary to possible sinusitis, continued on Unasyn Leukocytosis secondary to suspected sinusitis, possibly steroid induced Mild lactic acidosis with a peak of 3.6, currently 1.9 History of chronic tobacco dependence History of the pain History of bipolar disorder Plan: The patient was seen and evaluated Medications and labs reviewed Currently stable and on room air Remains on Unasyn per ID service Discontinue Solu-Medrol Initiated Medrol Dosepak Home once oral antibiotics initiated This patient was seen independently by the nurse practitioner I have personally seen and examined the patient, performed the documentation and the assessment and plan as written. Number of minutes spent on the visit: 23.
--- NOTE | 2023-01-29 14:50 | P.PN ---
Subjective Progress Note Date: 01/22/23 Principal diagnosis: Reason for follow-up is leukocytosis and sinusitis Patient is a 32-year-old female with a past medical history significant for anxiety bipolar depression current smoker presented to the hospital for evaluation of increasing shortness of breath, patient did have a negative C. difficile normal the chest CT of the brain no acute intracranial abnormality did shows up his fight right nasal passage with the nasal sinus disease concerning for sinusitis On today's evaluation that is01/29/2023, the patient continues to be afebrile, the patient is breathing comfortably on room air without the need for supplemental oxygen, the patient denies shortness of breath chest pain and no significant cough , patient denies nausea/vomiting, no abdominal pain and no diarrhea. Patient did have white count of 26.72, creatinine 0.5 Objective - Vital Signs Vital signs: Vital Signs Temp 98.8 F 01/29/23 12:06 Pulse 99 01/29/23 12:06 Resp 18 01/29/23 12:06 BP 112/65 01/29/23 12:06 Pulse Ox 95 01/29/23 12:06 FiO2 Intake & Output 01/28/23 01/29/23 01/29/23 18:59 06:59 18:59 Weight 45.359 kg Other: Voiding Method Toilet Toilet Toilet # Voids 3 1 1 # Bowel Movements 1 - Exam GENERAL DESCRIPTION: A middle-aged female lying in bed in no distress RESPIRATORY SYSTEM: Unlabored breathing , clear to auscultation anteriorly HEART: S1 S2 regular rate and rhythm , ABDOMEN: Soft , no tenderness EXTREMITIES: No edema feet - Labs CBC & Chem 7: 01/29/23 05:34 01/29/23 05:34 Labs: Abnormal Lab Results - Last 24 Hours (Table) 01/28/23 01/28/23 01/28/23 Range/Units 15:23 16:40 18:21 WBC (4.50-10.00) X 10*3/uL RBC (4.10-5.20) X 10*6/uL Hct (37.2-46.3) % MCH (27.0-32.0) pg Neutrophils # (1.80-7.70) X 10*3/uL Lymphocytes # (0.90-5.00) X 10*3/uL Eosinophils # (0.04-0.35) X 10*3/uL Chloride (96-109) mmol/L BUN (9.0-27.0) mg/dL Creatinine (0.6-1.5) mg/dL Glucose (70-110) mg/dL POC Glucose (mg/dL) 192 H (70-110) mg/dL Plasma Lactic Acid Kee 2.8 H* 3.6 H* (0.7-2.0) mmol/L Calcium (8.7-10.3) mg/dL C-Reactive Protein (0.00-0.80) mg/dL 01/28/23 01/29/23 01/29/23 Range/Units 20:12 05:34 05:34 WBC 26.72 H (4.50-10.00) X 10*3/uL RBC 3.84 L (4.10-5.20) X 10*6/uL Hct 35.4 L (37.2-46.3) % MCH 33.3 H (27.0-32.0) pg Neutrophils # 24.83 H (1.80-7.70) X 10*3/uL Lymphocytes # 0.89 L (0.90-5.00) X 10*3/uL Eosinophils # 0 L (0.04-0.35) X 10*3/uL Chloride 110 H (96-109) mmol/L BUN 6.0 L (9.0-27.0) mg/dL Creatinine 0.5 L (0.6-1.5) mg/dL Glucose 154 H (70-110) mg/dL POC Glucose (mg/dL) 147 H (70-110) mg/dL Plasma Lactic Acid Kee (0.7-2.0) mmol/L Calcium 8.4 L (8.7-10.3) mg/dL C-Reactive Protein 0.90 H (0.00-0.80) mg/dL 01/29/23 01/29/23 Range/Units 07:06 12:08 WBC (4.50-10.00) X 10*3/uL RBC (4.10-5.20) X 10*6/uL Hct (37.2-46.3) % MCH (27.0-32.0) pg Neutrophils # (1.80-7.70) X 10*3/uL Lymphocytes # (0.90-5.00) X 10*3/uL Eosinophils # (0.04-0.35) X 10*3/uL Chloride (96-109) mmol/L BUN (9.0-27.0) mg/dL Creatinine (0.6-1.5) mg/dL Glucose (70-110) mg/dL POC Glucose (mg/dL) 151 H 145 H (70-110) mg/dL Plasma Lactic Acid Kee (0.7-2.0) mmol/L Calcium (8.7-10.3) mg/dL C-Reactive Protein (0.00-0.80) mg/dL Microbiology - Last 24 Hours (Table) 01/27/23 21:15 Blood Culture - Preliminary Blood 01/27/23 21:30 Blood Culture - Preliminary Blood Assessment and Plan (1) Leukocytosis Current Visit: Yes Status: Acute Code(s): D72.829 - ELEVATED WHITE BLOOD CELL COUNT, UNSPECIFIED SNOMED Code(s): 673906292 (2) Sinusitis Current Visit: Yes Status: Acute Code(s): J32.9 - CHRONIC SINUSITIS, UNSPECIFIED SNOMED Code(s): 55086125 Plan: 1patient was in the hospital shortness of breath which is multifactorial, patient did have a CT angiogram of the chest that was negative for PE or p neumonia, patient also have a pressure to the right maxillary sinus area with some tenderness and purulent drainage with abnormal CT concerning for possible bacterial sinusitis clinically no evidence of any mastoiditis and then was seen on CT 2-patient seemed to have shown some clinical improvement and will continue with Unasyn 3 g every 8 hours that can be transition to oral Augmentin on discharge 3leukocytosis likely steroid related and will be monitored closely Dictation was produced using [employer] dictation software. please excuse any grammatical, word or spelling errors. Time with Patient: Less than 30
[2023-01-29 17:29] LABS: Glucose,Whole Blood 132 mg/dL (70-110)
[2023-01-29 20:09] LABS: Glucose,Whole Blood 105 mg/dL (70-110)
[2023-01-30] MEDS: AMPICILLIN-SULBACTAM 3 GM in SODIUM CHLORIDE 0.9% 100 ML IVPB SCH ×2 (00:26→08:46)
[2023-01-30] MEDS: SODIUM CHLORIDE 0.9% 1,000 ML IV SCH (03:07)
[2023-01-30 07:27] LABS: Glucose,Whole Blood 87 mg/dL (70-110)
[2023-01-30] MEDS: IPRATROPIUM-ALBUTEROL 3 ML NEB INHALATION SCH ×2 (08:12→11:49)
[2023-01-30] MEDS: INSULIN ASPART (NovoLOG) 100 UNIT/ML VIAL SQ SCH ×2 (08:43→12:57)
[2023-01-30] MEDS: ENOXAPARIN 40 MG/0.4 ML SYRINGE SQ SCH (08:45)
[2023-01-30] MEDS: guaiFENesin 600 MG TABLET.ER PO SCH (08:46)
[2023-01-30 08:49] LABS: HCT 33.7 % (37.2-46.3); HGB 12.2 g/dL (12.0-15.0); MCH 32.9 pg (27.0-32.0); MCHC 36.2 g/dL (32.0-37.0); MCV 90.8 FL (80.0-97.0); Mean Platelet Volume 11.1 FL (9.5-12.2); NRBC Per 100 WBC 0 X 10*3/uL (0.00-0.01); Platelet Count 282 X 10*3/uL (140-440); RBC 3.71 X 10*6/uL (4.10-5.20); RDW 13.1 % (11.5-14.5); WBC 21.46 X 10*3/uL (4.50-10.00)
[2023-01-30 09:00] LABS: BUN/Creat Ratio 13.33 Ratio (12.00-20.00); C Reactive Protein <0.30 mg/dL (0.00-0.80); Calcium 8.4 mg/dL (8.7-10.3); Chloride 108 mmol/L (96-109); Glucose 90 mg/dL (70-110); Potassium 3.5 mmol/L (3.5-5.5); Sodium 140 mmol/L (135-145)
[2023-01-30] MEDS ORDERED: methylPREDNISolone 4 MG TAB TAPER PO SCH (09:00)
[2023-01-30 11:47] LABS: Glucose,Whole Blood 101 mg/dL (70-110)
--- NOTE | 2023-01-30 12:12 | P.DS ---
Providers Date of admission: 01/28/23 12:49 Expected date of discharge: 01/30/23 Attending physician: Fernandez Ross Consults: 01/28/23 09:32 Consult Physician Routine Consulting Provider: Brittany Hinkle Consult Reason/Comments: Acute tracheobronchitis respiratory failure Do you want consulting provider notified?: Yes 01/28/23 12:52 Consult Physician Routine Consulting Provider: Matt Urias Consult Reason/Comments: Severe mastoiditis, sepsis Do you want consulting provider notified?: Yes Primary care physician: [facility] Course: * 32-year-old lady presented emergency department with complaints of shortness of breath, headache, chest pain and impaired mentation. Patient was noted in the emergency room early in the day and was diagnosed with bronchitis and discharged home on antibiotic. Patient had worsening of her symptoms and was brought in by family for worsening cough, headache and chest pain. * Workup in ER included CBC which showed WBC count of 17.8, neutrophil of 15.1 d-dimer of 0.69, serum chemistry showed renal profile serum left scratch within normal limits magnesium of 1.5 * At the time of presentation in ED patient was noted to be confused, CT brain was obtained negative for acute intracranial abnormality, does show opacified right nasal passage is air-fluid level in right maxillary sinus consistent with acute sinusitis * While in ER patient was given breathing treatments with DuoNeb, IV Solu-Medrol IV Zofran 1 L fluid bolus and admitted for further workup * Considering elevated d-dimer, CT chest was obtained which was negative for pulmonary embolism * Patient admitted to medical floor with consultations from pulmonary medicine for acute hypoxia as well * 01/29/2023: Patient seen and evaluated bedside, patient alert and oriented 4, headache has improved, patient states her breathing has improved as well. Patient seen by pulmonary medicine today, infectious disease consulted as well / WBC count trending up 27,000 * 01/30/23: Patient seen and evaluated bedside, patient is alert and oriented 4, WBC trending down. Afebrile continue patient on oral antibiotic prescription for amoxicillin provided patient remains on room air and stable for discharge PHYSICAL EXAMINATION: GENERAL: The patient is alert and oriented x3, on room air, appearing well HEENT: Pupils are round and equally reacting to light. EOMI. CARDIOVASCULAR: S1 and S2 present. No murmurs, rubs, or gallops. PULMONARY: Chest is clear to auscultation, no wheezing or crackles. ABDOMEN: Soft, nontender, nondistended, normoactive bowel sounds. No palpable organomegaly. MUSCULOSKELETAL: No joint swelling or deformity. EXTREMITIES: No cyanosis, clubbing, or pedal edema. NEUROLOGICAL: Gross neurological examination did not reveal any focal deficits. SKIN: No rashes. Assessment: Assessment and plan Acute bronchitis with acute hypoxia resolved Acute right mastoid sinusitis Sepsis secondary to mastoiditis Acute metabolic encephalopathy * In regards to acute bronchitis, patient was on IV Solu-Medrol, , pulmonary medicine consulted patient tested negative for RSV and Covid, continue Augmentin and Mucinex on discharge * In regards to acute mastoiditis CT head obtained and reviewed patient started on IV Unasyn follow-up on inflammatory markers continue Mucinex him upon discharge continue Augmentin * In regards to sepsis secondary to mastoiditis we will check lactate levels W BC count elevated at 17.8K> 27K, continue with fluid resuscitation, lactate levels IMPROVED >> blood cultures ordered no growth to date * In regards to metabolic encephalopathy likely secondary to underlying infectious process, at baseline and ready for discharge Patient Condition at Discharge: Stable Plan - Discharge Summary Discharge Rx Participant: No New Discharge Prescriptions: New Amoxic-Pot Clav 875-125Mg [Augmentin 875-125] 1 tab PO Q12HR 7 Days #14 tab predniSONE [Deltasone] 20 mg PO DAILY 3 Days #3 tab guaiFENesin [Mucinex] 600 mg PO Q12HR 5 Days #10 tab Benzocaine/Menthol Lozeng [Cepacol lozenge] 1 each MUCOUS MEM Q4HR PRN 7 Days #42 lozenge PRN Reason: Sore Throat Discontinued Azithromycin [Zithromax Z Pack] See Taper PO DIRECTED Benzonatate [Tessalon Perles] 100 mg PO TID PRN #15 capsule PRN Reason: Cough Discharge Medication List Amoxic-Pot Clav 875-125Mg [Augmentin 875-125] 1 tab PO Q12HR 7 Days #14 tab 01/30/23 [Rx] Benzocaine/Menthol Lozeng [Cepacol lozenge] 1 each MUCOUS MEM Q4HR PRN 7 Days #42 lozenge 01/30/23 [Rx] guaiFENesin [Mucinex] 600 mg PO Q12HR 5 Days #10 tab 01/30/23 [Rx] predniSONE [Deltasone] 20 mg PO DAILY 3 Days #3 tab 01/30/23 [Rx] Follow up Appointment(s)/Referral(s): Taran Vasques MD [Primary Care Provider] - 1-2 days Patient Instructions/Handouts: Sinusitis (GEN) Discharge Disposition: HOME SELF-CARE
--- NOTE | 2023-01-30 12:30 | P.PN ---
Subjective Progress Note Date: 01/30/23 This is a pleasant 32-year-old female patient with a known history of chronic tobacco dependence since age 15, vaping, bipolar disorder. She presented to the emergency room yesterday with complaints of shortness of breath, cough or congestion. She was given antibiotics and Tessalon Perles and discharged home. She came back later in the evening with complaints of severe shortness of breath, severe headache, crying in pain, chest pain. Computed tomography scan of the brain revealed no acute intracranial CT abnormality. There was opacified right nasal passage with paranasal sinus disease suspicious for acute sinusitis. CT angiogram ruled out pulmonary embolism. Lung turner unremarkable. No acute process. White count 17.8. Hemoglobin 14.6. Platelets 291. Sodium 138. Potassium 3.8. Bicarb 21. BUN 4. Creatinine 0.47. Glucose 104. TSH 0.57. Urinalysis clean. Urine drug analysis clean. She is seen today in consultation on the regular medical floor. She is currently sitting up in bed. Awake and alert in no acute distress. Feeling better today compared to yesterday. Maintaining O2 saturations up to 98% on 2 L/m per nasal cannula. She's been afebrile. Hemodynamically stable. She was initiated on antibiotics in the form of Unasyn. Continued on DuoNeb inhalations, Tessalon Perles, Solu-Medrol. Normal saline at 100 ML's per hour. The patient is seen today 01/29/2023 in follow-up on the regular medical floor. She is currently sitting up in bed. Having breakfast. Awake and alert in no acute distress. Breathing easier today compared to yesterday. Maintaining O2 saturations in the mid 90s on room air. Afebrile. Hemodynamically stable. Blood cultures reveal no growth to date. White count 26.7. Hemoglobin 12.8. Platelets 284. Sodium 141. Potassium 4.3. Bicarb 22. BUN 6. Creatinine 0.5. Glucose 154. C-reactive protein 0.90. She is continued on Unasyn per ID service. Continued on bronchodilators, steroids, Lovenox for DVT prophylaxis. Normal saline at 100 ML's per hour. Lactic acid 1.9. The patient is seen today 01/30/2023 in follow-up on the regular medical floor. She is awake and alert in no acute distress. Continues to maintain good O2 saturations in the 90s on room air. She denies any worsening shortness of breath, cough or congestion. No headache. No sinus congestion. White count 21.4. Hemoglobin 12.2. Platelets 282. Sodium 140. Potassium 3.5. Bicarb 24. BUN 8. Creatinine 0.6. Glucose 123. C-reactive protein less than 0.30. She is currently on Unasyn. Remains on Lovenox for DVT prophylaxis. Continued on bronchodilators and a Medrol Dosepak. Objective - Vital Signs Vital signs: Vital Signs Temp 98.8 F 01/30/23 07:51 Pulse 84 01/30/23 07:51 Resp 15 01/30/23 07:51 BP 105/61 01/30/23 07:51 Pulse Ox 95 01/30/23 07:51 FiO2 Intake & Output 01/29/23 01/30/23 01/30/23 18:59 06:59 18:59 Intake Total 480 Balance 480 Intake: Oral 480 Other: Voiding Method Toilet Toilet Toilet # Voids 1 3 # Bowel Movements 1 - Exam GENERAL EXAM: Alert, 32-year-old female, on room air, sitting up having breakfast, comfortable in no apparent distress. HEAD: Normocephalic. EYES: Normal reaction of pupils, equal size. NOSE: Clear with pink turbinates. THROAT: No erythema or exudates. NECK: No masses, no JVD. CHEST: No chest wall deformity. LUNGS: Equal air entry with no crackles, wheeze, rhonchi or dullness. CVS: S1 and S2 normal with no audible murmur, regular rhythm. ABDOMEN: No hepatosplenomegaly, normal bowel sounds, no guarding or rigidity. SPINE: No scoliosis or deformity SKIN: No rashes CENTRAL NERVOUS SYSTEM: No focal deficits, tone is normal in all 4 extremities. EXTREMITIES: There is no peripheral edema. No clubbing, no cyanosis. Peripheral pulses are intact. - Labs CBC & Chem 7: 01/30/23 04:42 01/30/23 04:42 Labs: Abnormal Lab Results - Last 24 Hours (Table) 01/29/23 01/30/23 01/30/23 Range/Units 17:24 04:42 04:42 WBC 21.46 H (4.50-10.00) X 10*3/uL RBC 3.71 L (4.10-5.20) X 10*6/uL Hct 33.7 L (37.2-46.3) % MCH 32.9 H (27.0-32.0) pg BUN 8.0 L (9.0-27.0) mg/dL POC Glucose (mg/dL) 132 H (70-110) mg/dL Calcium 8.4 L (8.7-10.3) mg/dL Microbiology - Last 24 Hours (Table) 01/27/23 21:15 Blood Culture - Preliminary Blood 01/27/23 21:30 Blood Culture - Preliminary Blood Assessment and Plan Assessment: Acute upper respiratory tract infectiontracheobronchitis without evidence of pneumonia Atypical chest pain, pulmonary embolism ruled out. Lung turner clear Headaches secondary to possible sinusitis, continued on Unasyn Leukocytosis secondary to suspected sinusitis, possibly steroid induced Mild lactic acidosis with a peak of 3.6, currently 1.9 History of chronic tobacco dependence History of the pain History of bipolar disorder Plan: The patient was seen and evaluated Medications and labs reviewed Currently stable and on room air Recommending discontinuing Unasyn Complete 8 days of Augmentin Initiated on a Medrol Dosepak This patient was seen independently by the nurse practitioner I have personally seen and examined the patient, performed the documentation and the assessment and plan as written. Number of minutes spent on the visit: 20.
--- NOTE | 2023-01-30 12:32 | P.PN ---
Subjective Progress Note Date: 01/30/23 Principal diagnosis: Reason for follow-up is leukocytosis and sinusitis Patient is a 32-year-old female with a past medical history significant for anxiety bipolar depression current smoker presented to the hospital for evaluation of increasing shortness of breath, patient did have a negative C. difficile normal the chest CT of the brain no acute intracranial abnormality did shows up his fight right nasal passage with the nasal sinus disease concerning for sinusitis On today's evaluation that is 01/30/2023, the patient remains to be afebrile, the patient is breathing comfortably on room air and the patient denies any shortness of breath, the patient denies chest pain or any cough , patient denies abdominal pain, no nausea/vomiting and no diarrhea Patient did have white count is down to 21.46, creatinine 0.6 Objective - Vital Signs Vital signs: Vital Signs Temp 98.8 F 01/30/23 07:51 Pulse 84 01/30/23 07:51 Resp 15 01/30/23 07:51 BP 105/61 01/30/23 07:51 Pulse Ox 95 01/30/23 07:51 FiO2 Intake & Output 01/29/23 01/30/23 01/30/23 18:59 06:59 18:59 Intake Total 480 Balance 480 Intake: Oral 480 Other: Voiding Method Toilet Toilet # Voids 1 3 # Bowel Movements 1 - Exam GENERAL DESCRIPTION: A middle-aged female lying in bed in no distress RESPIRATORY SYSTEM: Unlabored breathing , clear to auscultation anteriorly HEART: S1 S2 regular rate and rhythm , ABDOMEN: Soft , no tenderness EXTREMITIES: No edema feet - Labs CBC & Chem 7: 01/30/23 04:42 01/30/23 04:42 Labs: Abnormal Lab Results - Last 24 Hours (Table) 01/29/23 01/29/23 01/29/23 Range/Units 05:34 12:08 17:24 WBC (4.50-10.00) X 10*3/uL RBC (4.10-5.20) X 10*6/uL Hct (37.2-46.3) % MCH (27.0-32.0) pg Neutrophils # 24.83 H (1.80-7.70) X 10*3/uL Lymphocytes # 0.89 L (0.90-5.00) X 10*3/uL Eosinophils # 0 L (0.04-0.35) X 10*3/uL BUN (9.0-27.0) mg/dL POC Glucose (mg/dL) 145 H 132 H (70-110) mg/dL Calcium (8.7-10.3) mg/dL 01/30/23 01/30/23 Range/Units 04:42 04:42 WBC 21.46 H (4.50-10.00) X 10*3/uL RBC 3.71 L (4.10-5.20) X 10*6/uL Hct 33.7 L (37.2-46.3) % MCH 32.9 H (27.0-32.0) pg Neutrophils # (1.80-7.70) X 10*3/uL Lymphocytes # (0.90-5.00) X 10*3/uL Eosinophils # (0.04-0.35) X 10*3/uL BUN 8.0 L (9.0-27.0) mg/dL POC Glucose (mg/dL) (70-110) mg/dL Calcium 8.4 L (8.7-10.3) mg/dL Microbiology - Last 24 Hours (Table) 01/27/23 21:15 Blood Culture - Preliminary Blood 01/27/23 21:30 Blood Culture - Preliminary Blood Assessment and Plan (1) Leukocytosis Current Visit: Yes Status: Acute Code(s): D72.829 - ELEVATED WHITE BLOOD CELL COUNT, UNSPECIFIED SNOMED Code(s): 235698106 (2) Sinusitis Current Visit: Yes Status: Acute Code(s): J32.9 - CHRONIC SINUSITIS, UNSPECIFIED SNOMED Code(s): 79676119 Plan: 1patient was in the hospital shortness of breath which is multifactorial, patient did have a CT angiogram of the chest that was negative for PE or pneum onia, patient also have a pressure to the right maxillary sinus area with some tenderness and purulent drainage with abnormal CT concerning for possible bacterial sinusitis clinically no evidence of any mastoiditis and then was seen on CT 2-patient seemed to have shown some clinical improvement and will finish therapy with a short course of oral Augmentin on discharge discussed with the admitting team 3leukocytosis likely steroid related and is trending down Dictation was produced using [employer] software. please excuse any grammatical, word or spelling errors. Time with Patient: Less than 30
[2023-01-30 14:16] VITALS: BP 110/73; PULSE 96; RESP 16; TEMP 97.7
== END 2023-01-30 15:13 | disposition home or self-care (01) ==
LOC: EC 20:19 → 5NMEDONC 01-28 00:46 → OBSVTOIN 01-28 12:49 → INTOOBSV 01-28 12:49 → UNDODISIN 01-30 15:13
PROVIDERS: ADMIT Hospitalist; ATTEND Hospitalist
DX: A41.9 Sepsis, unspecified organism (principal); H70.90 Unspecified mastoiditis, unspecified ear; J32.9 Chronic sinusitis, unspecified; G93.41 Metabolic encephalopathy; J20.9 Acute bronchitis, unspecified; K52.9 Noninfective gastroenteritis and colitis, unspecified; E86.0 Dehydration; D72.829 Elevated white blood cell count, unspecified; J06.9 Acute upper respiratory infection, unspecified; R07.89 Other chest pain; R51.9 Headache, unspecified; F41.9 Anxiety disorder, unspecified; F31.9 Bipolar disorder, unspecified; F17.290 Nicotine dependence, other tobacco product, uncomplicated; Z79.52 Long term (current) use of systemic steroids
CPT/HCPCS: 96376 ×2; 96361 ×3; 96366 ×4; 96367; 96372 ×3; 96375 ×2; 96365; 99285; 36415; 94640 ×3; 94760; 93005; 85379; 83880; 80053; 80048 ×2; 82140; 82803; 83605 ×3; 83735; 84100; 84443; 84484; 85025 ×2; 85027; 85610; 85730; 86140 ×2; 81003; 87040; 80306; 70450; 71275; G0378 ×5; G0480; J2930 ×2; J2405; J1650 ×2; J3475 ×2; J0295 ×3; J7509; Q9967; 80320